=== PATIENT | female | born 1935 | race Caucasian/White ===

== ENCOUNTER 2023-01-18 07:13 | Observation (INO) | payer MEDICARE, OTHER, SELFPAY ==
[2023-01-18] VITALS (10 sets, daily range): BP systolic 140–151; BP diastolic 57–74; PULSE 77–84; RESP 17–18; TEMP 36.2–37; O2SAT 95–98; BMI 22.2
--- NOTE | ~2023-01-18 | XR_ITS ---
EXAMINATION: XR shoulder RT min 2V INDICATION: Right shoulder pain, initial encounter TECHNIQUE: Four views of the right shoulder are submitted. COMPARISON: None FINDINGS: There is an acute, traumatic, closed, comminuted fracture of the proximal humerus. The grea ter tuberosity exists as a separate fracture fragment. No additional fracture is identified. There is soft tissue swelling of the shoulder. IMPRESSION: 1. Comminuted fracture of the humeral head with the greater tuberosity as a separate fracture fragmen t. Reviewed, dictated and finalized at location A. IMPRESSION: 1. Comminuted fracture of the humeral head with the greater tuberosity as a sep arate fracture fragment.
--- NOTE | ~2023-01-18 | CT_ITS ---
EXAMINATION: CT brain wo con INDICATION: Headache COMPARISON: None TECHNIQUE: Standard unenhanced head CT. The dose-length product (DLP) was 605.33 mGy-cm. The mA was a djusted according to patient size. Iterative reconstruction technique was employed. FINDINGS: There is no acute intraparenchymal hemorrhage. No evidence of mass lesion. No evidence of a cute infarction. There is mild periventricular and subcortical hypodensity probably related to small vessel ischemic disease. There is mild prominence of the sulci and ventricles related to cerebral atr ophy. Intracranial calcified cerebral atherosclerosis is noted. There are no extra-axial collections. There is no mass effect or midline shift. Changes in the globes are likely from ocular lens surgery. The visualized sinuses and mastoid air cells are well aerated. IMPRESSION: 1. No acute intracranial abnormality. 2. Age related findings. Reviewed, dictated and finalized at location A.
--- NOTE | ~2023-01-18 | CT_ITS ---
EXAMINATION: CT shoulder RT wo con DATE: 01/18/2023 13:51 INDICATION: Complex right shoulder fracture TECHNIQUE: Computed tomography (CT) of the right shoulder was performed without intravenous contrast. The dose-length product (DLP) was 409.61 mGy-cm. Automated exposure control and iterative reconstruc tion technique were employed. COMPARISON: None FINDINGS: Again seen is a comminuted fracture of the right humeral head. The articular surface of the humeral head is mildly inferiorly displaced with respect to the glenoid. The greater tuberosity exis ts as a separate fracture fragment. The humeral shaft is proximally migrated and primarily located an terior to the remaining fracture fragments. There is a joint effusion. No additional fracture is iden tified. There are subpleural reticular and groundglass opacities of the lungs in a pattern consistent with nonspecific interstitial pneumonia. IMPRESSION: 1. Complex comminuted fractures of the right humeral head as above. Reviewed, dictated and finalized at location A.
--- NOTE | ~2023-01-18 | CT_ITS ---
EXAMINATION: CT brain wo con DATE: 01/19/2023 17:29 INDICATION: Fall today. TECHNIQUE: Computed tomography (CT) of the head was performed without intravenous contrast. The mA wa s adjusted according to patient size. Iterative reconstruction technique was employed. Exam dose: 60 5.33 mGy-cm total exam DLP. COMPARISON: 01/18/2023 CDT FINDINGS: There is central and cortical cerebral atrophy. There is moderate cerebellar atrophy. There is nonspecific diminished attenuation cerebral white matter, likely due to chronic small vessel isch emic changes of the cerebral white matter. Bilateral carotid siphon internal carotid artery calcifications. No intracranial mass lesion or hemorrhage, midline shift or mass effect. No subdural or epidural miguel carmela. No fracture or bone destruction of the cranial vault. The mastoid air cells and included paranasal si nuses are normally developed and aerated. IMPRESSION: Cerebral and cerebellar atrophy Cerebral atherosclerosis and chronic small vessel ischemic changes of the cerebral white matter No acute intracranial abnormality Reviewed, dictated and finalized at Location A. Reviewed, dictated and finalized at location A. IMPRESSION: Cerebral and cerebellar atrophy Cerebral atherosclerosis and chronic small vessel ischemic changes of the cereb ral white matter No acute intracranial abnormality
--- NOTE | ~2023-01-18 | XR_ITS ---
XR hip BI 2V w AP pelvis DATE: 01/19/2023 16:39 INDICATION: Recent fall. Right hip pain. TECHNIQUE: AP pelvis. AP and lateral views of each hip. COMPARISON: None FINDINGS: Multilevel degenerative disc disease of the lumbar spine. The pubic symphysis and sacroiliac joints are intact. No pelvic fracture or bone destruction. There is mild bilateral hip osteoarthritis. No fracture, dislocation, avascular necrosis or bone dest ruction of either hip is detected. IMPRESSION: Mild bilateral hip osteoid arthritis Multilevel degenerative disc disease of the lumbar spine Reviewed, dictated and finalized at location A.
--- NOTE | ~2023-01-18 | XR_ITS ---
EXAMINATION: XR humerus RT INDICATION: Arm pain after fall TECHNIQUE: Two views of the right humerus are obtained on four radiographs. COMPARISON: None available FINDINGS: There is an acute, traumatic, closed, comminuted fracture of the proximal humerus. The grea ter tuberosity exists as a separate fracture fragment. No additional fracture is identified. Bone ali gnment at the elbow is normal. There is soft tissue swelling of the shoulder. IMPRESSION: 1. Comminuted fracture of the humeral head with the greater tuberosity as a separate fracture fragmen t. Reviewed, dictated and finalized at location A. IMPRESSION: 1. Comminuted fracture of the humeral head with the greater tuberosity as a sep arate fracture fragment.
--- NOTE | 2023-01-18 07:16 | ED.FALL ---
HPI - Fall General Chief Complaint: Fall Stated Complaint: fall, shoulder pain Time Seen by Provider: 01/18/23 07:15 Source: patient and EMS Mode of arrival: EMS Limitations: no limitations History of Present Illness HPI Narrative: Patient tripped and fell in her bedroom landed on the right shoulder, carpeted floor, no head injury or other injuries, not on any blood thinner. complaint: fall Related Data Allergies Allergy/AdvReac Type Severity Reaction Status Date / Time No Known Allergies Allergy Verified 01/18/23 07:22 Review of Systems Review of Systems: All systems reviewed & are unremarkable except as noted in HPI and below PMFSH Family History Family History Grandparent Family history of malignant neoplasm of breast Social History Social History Smoking status: Never smoker Smoking end date: 10/27/69 Alcohol intake: never Exam Narrative: General appearance: Well-developed, well-nourished Skin: Normal color Head: Normocephalic, nontraumatic Eyes: Clear conjunctiva ENT: Oropharynx normal, ears normal, nose normal Neck: Supple, nontender Chest and respiratory: Airway patent, no respiratory distress, no accessory muscle use Heart: Regular rate/rhythm Abdomen: Soft, nontender, no organomegaly, quiet bowel sounds Vascular: Normal peripheral pulses, normal capillary refill. Musculoskeletal: Diffuse tenderness right arm, proximal, swollen, bruised, no obvious deformity, severe limited range of motion Neurologic: Alert and oriented ?3, GLASS POLISHER is normal as tested, no gross motor deficit Course Reevaluation(s) Reevaluation #1: Patient feeling okay, I agreed with the admission Date: 01/18/23 Time: 09:08 Consultations Consultation #1: Dr. Nelson Shoulder immobilizer, outpatient follow next week Date: 01/18/23 Time: 08:12 Vital Signs Vital signs: Vital Signs Temperature 37.0 C 01/18/23 07:11 Pulse Rate 84 01/18/23 07:11 Respiratory Rate 18 01/18/23 07:11 Blood Pressure 151/74 H 01/18/23 07:11 Pulse Oximetry 97 01/18/23 07:11 Oxygen Delivery Room Air 01/18/23 07:11 Temperature 37.0 C 01/18/23 07:11 Pulse Rate 84 01/18/23 07:11 Respiratory Rate 18 01/18/23 07:11 Blood Pressure 151/74 H 01/18/23 07:11 Pulse Oximetry 97 01/18/23 07:11 Oxygen Delivery Room Air 01/18/23 07:11 MDM - Fall MDM Narrative Medical decision making narrative: Patient came from assisted living with a fall on the right shoulder, denies other injuries. X-ray right shoulder ordered, and showed comminuted fracture of the humeral head with the greater tuberosity as a separate fracture fragment. Patient received [place] 5/[address] prior to admission Dr. Nelson consulted, requested shoulder immobilizer and follow-up as outpatient. Because patient came from assisted living, have no assist at home will be admitted for social service consult and possible skilled nursing placement in the meantime. Differential Diagnosis Differential diagnosis: Likely compression fracture (Fracture right arm, dislocation right shoulder) Critical Care Time Critical Care Time Critical Care Time: Yes Total Critical Care Time: 10 Discharge Plan Discharge Clinical Impression: Fracture of right shoulder Patient Disposition: Still a Patient Condition: Stable Instructions: Antibiotic Form, Arm Fracture in Adults (DC) Additional Instructions: Admit to hospitalist Follow-up/Referrals: Lamberto Valdivia MD [Primary Care Provider] -
[2023-01-18] MEDS: HYDROcodone/acetaminophen (*CRX) 5-325 MG TABLET 1 TAB PO (07:49)
--- NOTE | 2023-01-18 09:53 | PC.NURSE ---
This patient, Fara Nicole, was admitted to [facility] Surg Room 325-02. Patient/family oriented to hospital policies and general routines including ID bracelet, bed and alarms, visiting hours, pain management, procedures, bathroom and other care routines, personal items, smoking policy, room service/diet, and visiting hours. Information on how to activate the Rapid Response Team has been discussed. Patient/Family are encouraged to report perceived risks to care and to ask questions if they do not understand what they are told or what they should do.
--- NOTE | 2023-01-18 12:26 | PM.CNOR ---
Assessment and Plan Assessment and plan (1) Fracture of right shoulder: Code(s): S42.91XA - Fracture of right shoulder girdle, part unspecified, initial encounter for closed fracture Status: Acute Assessment and Plan: Displaced comminuted fracture of the right proximal humerus. Significant progressive dementia. Low functional demand, and frequent falls. Surgery would carry significant risk for her. Non operative treatment would likely lead to satisfactory function. I recommend a CT scan to take a closer look at the fracture. Will plan to treat with the immobilizer. Discharged to assisted living when that becomes available or make other arrangements sooner. History of Present Illness HPI Consult date: 01/18/23 Chief complaint: Fracture right shoulder Narrative: 87-year-old pleasantly demented female complains of right shoulder pain. She does not have a recollection of events. She is not oriented to place or time. History obtained from the nurse. Apparently was found down today at the assisted living. Due to recent decline she is planning to transfer to higher level of care January 25. She has a history of frequent falls and has been using the walker more often. Review of Systems Review of Systems: ROS unobtainable: Yes unobtainable due to mental status [facility] Family History Family History Grandparent Family history of malignant neoplasm of breast Social History Social History Smoking status: Never smoker Smoking end date: 10/27/69 Alcohol intake: never Substance use: never Substance use type: does not use Lack of Transportation: No Lack of Food: Never True Current Housing: I Have Housing Concerned About Future Housing: No Difficulty Paying Gas/Electric Bills: No Difficulty Paying for Meds: No Currently Unemployed: No Education: High School Diploma/GED Difficulty w/ Childcare or Family Care: No Spiritual care concerns: No Meds Home Medications and Allergies Home Medications Medication Instructions Recorded Confirmed Type aspirin 81 mg tablet,delayed 81 mg PO DAILY 01/18/23 01/18/23 History release atorvastatin 10 mg tablet 10 mg PO DAILY 01/18/23 01/18/23 History cholecalciferol (vitamin D3) 50 50 mcg PO DAILY 01/18/23 01/18/23 History mcg (2,000 unit) capsule (Vitamin D3) donepezil 5 mg tablet 5 mg PO HS 01/18/23 01/18/23 History hydrochlorothiazide 100 mg tablet 200 mg PO DAILY 01/18/23 01/18/23 History lisinopril 5 mg tablet 5 mg PO DAILY 01/18/23 01/18/23 History omega-3 fatty acids-vitamin E 1,000 cap PO DAILY 01/18/23 01/18/23 History 1,000 mg capsule sertraline 100 mg tablet 100 mg PO DAILY 01/18/23 01/18/23 History Allergies Allergy/AdvReac Type Severity Reaction Status Date / Time No Known Allergies Allergy Verified 01/18/23 07:22 Vital Signs Vital Signs - 24 hr 01/18/23 07:11 01/18/23 07:47 01/18/23 08:00 Temperature 37.0 C Pulse Rate 84 Respiratory Rate 18 Blood Pressure 151/74 H Pulse Oximetry 97 98 97 Oxygen Delivery Room Air 01/18/23 08:15 01/18/23 08:32 01/18/23 08:42 Temperature Pulse Rate Respiratory Rate Blood Pressure 141/57 H Pulse Oximetry 98 97 Oxygen Delivery 01/18/23 08:45 01/18/23 09:00 Temperature Pulse Rate Respiratory Rate Blood Pressure Pulse Oximetry 96 98 Oxygen Delivery Exam Narrative: Pleasantly demented. Thin. Appears quite healthy and alert. Sitting upright in bed eating her lunch. Right shoulder with significant ecchymosis anteriorly at the mid to proximal humerus. No clinical deformity. Immobilizer appropriately placed. light touch sensation intact at the axillary nerve. Kelly Machine Operator strength intact. Light touch sensation intact distally. No edema. Results Labs Labs: All other labs normal. [facility] Consult Billing Inp
--- NOTE | 2023-01-18 13:25 | PM.IMHP ---
H&P: HPI History of Present Illness Date/Time: 01/18/23 13:25 Chief Complaint: Fall Narrative: This is an 87-year-old female patient with a history of dementia. She tells me that she lives in assisted living. The patient fell and landed on her right shoulder. She tripped over something in her bedroom. She landed on a carpeted floor and denies any head injury or any other head injuries. Right shoulder x-ray was read as comminuted fracture of the humeral head with greater tuberosity as a separate fracture fragment. Humerus x-ray was read as comminuted fracture of the humeral head the greater tuberosity as a separate fracture fragment. The patient was placed in a swath and sling. She denies any discomfort. Ortho was consulted and have already seen the patient. Ortho recommended a CT for further evaluation of the fracture and mentioned that non operative treatment would likely lead to satisfactory function. She was given [place] in the emergency room. The patient is being admitted to observation status on the date of service of 01/18/2023 Review of Systems Review of Systems: All systems reviewed & are unremarkable except as noted in HPI and below Constitutional: Constitutional: Reports as per HPI and Reports no additional constitutional complaints Eyes: Eyes: Reports as per HPI and Reports no additional eye complaints ENT: Reports system reviewed and no additional complaints, except as documented and Reports Normal hearing present Cardiovascular: Cardiovascular: Reports no additional cardiovascular complaints Respiratory: Respiratory: Reports no additional respiratory complaints and Reports no additional respiratory complaints Gastrointestinal: Gastrointestinal: Reports as per HPI and Reports no additional gastrointestinal complaints Musculoskeletal: Musculoskeletal: Reports no additional musculoskeletal complaints Integumentary/Breasts: Skin/Breast: Reports system reviewed and no additional complaints, except as docu and Reports as per HPI Neurologic: Reports system reviewed and no additional complaints, except as documented, Reports as per HPI and Reports Normal hearing present Psychiatric: Psychiatric: Reports no additional psychiatric complaints and Reports as per HPI Endocrine: Endocrine: Reports no additional endocrine complaints Hematologic/Lymphatic: Hematologic/Lymphatic: Reports no additional hematologic/lymphatic complaints Allergic/Immunologic: Allergic/Immunologic: Reports no additional allergic/immunologic complaints [facility] Past Medical History Medical History Dementia Depression with anxiety Hyperlipidemia Hypertension Rheumatoid arthritis Surgical History Surgical History H/O foot surgery H/O tubal ligation H/O: hysterectomy Family History Family History Grandparent Family history of malignant neoplasm of breast Sibling Cerebrovascular accident Father Acute myocardial infarction Social History Social History Social History: The patient is and tells me she has 5 children. 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 Code status full code Smoking status: Former smoker Smoking end date: 10/27/69 Alcohol intake: never Substance use: never Substance use type: does not use Lack of Transportation: No Lack of Food: Never True Current Housing: I Have Housing Concerned About Future Housing: No Difficulty Paying Gas/Electric Bills: No Difficulty Paying for Meds: No Currently Unemployed: No Education: High School Diploma/GED Difficulty w/ Childcare or Family Care: No Spiritual care concerns: No
[2023-01-18 14:18] LABS: Alanine Aminotransferase 24 U/L (6-35); Alkaline Phosphatase 85 U/L (38-126); Anion Gap 8 mmol/L (8-16); Aspartate Amino Transferase 31 U/L (14-36); Bilirubin,Total 0.6 mg/dL (0.2-1.3); Blood Urea Nitrogen 16 mg/dL (7-17); Calcium 9.1 mg/dL (8.4-10.2); Carbon Dioxide 24 mmol/L (22-30); Chloride 104 mmol/L (98-107); Estimated Glomerular Filt Rate > 60; Glucose 127 mg/dL (65-110); Potassium 3.9 mmol/L (3.4-5.0); Sodium 136 mmol/L (137-145)
[2023-01-18 14:19] LABS: Basophils Absolute Auto 0.1 K/mm3 (0.0-0.1); Basophils Percent Auto 0.5 % (0.2-1.2); Hematocrit 37.2 % (37.0-47.0); Hemoglobin 12.3 g/dL (12.0-15.0); Immature Granulocyte Absolute 0.05 K/mm3 (0.00-0.031); Immature Granulocyte Percent A 0.4 % (0-0.5); Lymphocytes Absolute Auto 0.82 K/mm3 (0.9-3.2); Lymphocytes Percent Auto 6.7 % (18.3-44.2); Mean Corpuscular HGB Conc 33.1 g/dl (32-36); Mean Corpuscular Hemoglobin 29.4 pg (26-34); Mean Corpuscular Volume 88.8 fl (80-100); Mean Platelet Volume 9.8 fl (7.4-10.4); Monocytes Absolute Auto 1.2 K/mm3 (0.1-0.6); Monocytes Percent Auto 9.8 % (2.6-8.5); Neutrophils Absolute Auto 10.1 K/mm3 (1.3-6.7); Neutrophils Percent Auto 82.6 % (45.5-73.1); Platelet Count Result 365 k/mm3 (150-375); Red Blood Count 4.19 M/mm3 (4.2-5.4); Red Cell Distribution Width 13.2 % (11.5-14.5); White Blood Count 12.2 K/mm3 (4.5-10.0)
[2023-01-18] MEDS: ACETAMINOPHEN 325 MG TABLET 650 MG PO (16:38)
[2023-01-18] MEDS: DONEPEZIL HCL 5 MG TABLET PO (21:37)
[2023-01-19 04:07] VITALS: BP 142/67; PULSE 93; RESP 20; TEMP 36.6; O2SAT 95
--- NOTE | 2023-01-19 07:20 | PM.IMPN ---
Progress Note: A&P Assessment and Plan (1) Fracture of right shoulder: Code(s): S42.91XA - Fracture of right shoulder girdle, part unspecified, initial encounter for closed fracture Status: Acute Assessment and Plan: Ortho was consulted and patient high risk for surgery. Recommend conservative nonsurgical measures CT of the shoulder shows complex comminuted fractures of right humeral head Continue with analgesics PT OT evaluation and recommendations. Continue right arm immobilizer sling and weight bearing recommendations per ortho (2) Dementia: Code(s): F03.90 - Unspecified dementia, unspecified severity, without behavioral disturbance, psychotic disturbance, mood disturbance, and anxiety Status: Acute Assessment and Plan: Unsure of baseline. Patient is forgetful Continue with Aricept recycle coordinator following for possible rehab B12 222 and will supplement with PO B12 2000 mcg daily, repeat B12 level in [address] head negative for acute findings. (3) Hypertension: Qualifiers: Hypertension type: primary hypertension Qualified Code(s): I10 - Essential (primary) hypertension Code(s): I10 - Essential (primary) hypertension Status: Chronic Assessment and Plan: Continue with lisinopril as BP allows. 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 Will start 2000 IU daily for goal >30 Plan CODE STATUS: FULL CODE Disposition: pending PT/OT eval Time Spent With Patient Time with patient: 15 - 25 minutes Subjective Date/time seen: 01/19/23 07:20 Patient found sitting up in bed with right arm immobilizing sling in place. She denies c/o pain, paresthesia or paralysis. She does not recall what caused her fall, but denies chest pain, SOB, dizziness, LE weakness, dysuria, fever, chills, cough, sputum, or GI symptoms. Review of Systems Review of Systems: All systems reviewed & are unremarkable except as noted in HPI and below Exam Narrative: General: No acute distress.? Thin, frail older adult female sitting up in bed. Neuro/Psych: Awake, alert and oriented to person only. Clear and appropriate speech. Pleasant and cooperative. No focal sensory or motor deficits. No facial droop. No tremors or fasciculations. Skin: fair, warm, dry and intact without rashes. Large ecchymosis right anterior upper arm. <3 second cap refill. HEENT: Normocephalic. Sclera is non-icteric. Pupils equal and round. Oral mucosa pink and moist. Neck: No JVD. Heart: S1 and S2 regular rate and rhythm. No murmurs, gallops, or rubs auscultated. Chest: Respirations even and unlabored. Lung sounds are clear to auscultation without wheezes, rhonchi, or rales. Abdomen: Soft, round, non-tender to palpation.? Bowel sounds present in all 4 quadrants. No guarding or suprapubic tenderness. Extremities:? No edema, erythema or calf tenderness. RUE immobilizing sling sensation intact and able to wiggle fingers. Hand warm and dry. Radial and dorsalis pulses +2 bilaterally. Objective Data Vital Signs Vital Signs: Vital Signs - 24 hr 01/18/23 07:47 01/18/23 08:0
[2023-01-19 07:26] LABS: Basophils Absolute Auto 0.1 K/mm3 (0.0-0.1); Basophils Percent Auto 0.7 % (0.2-1.2); Eosinophils Percent Auto 0.3 % (0-4.4); Hematocrit 35.7 % (37.0-47.0); Hemoglobin 11.6 g/dL (12.0-15.0); Immature Granulocyte Absolute 0.03 K/mm3 (0.00-0.031); Immature Granulocyte Percent A 0.3 % (0-0.5); Lymphocytes Absolute Auto 0.69 K/mm3 (0.9-3.2); Lymphocytes Percent Auto 6.8 % (18.3-44.2); Mean Corpuscular HGB Conc 32.5 g/dl (32-36); Mean Corpuscular Hemoglobin 28.9 pg (26-34); Mean Platelet Volume 10.1 fl (7.4-10.4); Monocytes Absolute Auto 1.4 K/mm3 (0.1-0.6); Monocytes Percent Auto 13.4 % (2.6-8.5); Neutrophils Percent Auto 78.5 % (45.5-73.1); Platelet Count Result 338 k/mm3 (150-375); Red Blood Count 4.01 M/mm3 (4.2-5.4); Red Cell Distribution Width 13.2 % (11.5-14.5); White Blood Count 10.2 K/mm3 (4.5-10.0)
[2023-01-19 07:39] LABS: Lactic Acid Reflex 0.9 mmol/L (0.7-2.0)
[2023-01-19 07:47] LABS: Alanine Aminotransferase 19 U/L (6-35); Albumin Level 4.1 g/dL (3.5-5.1); Alkaline Phosphatase 84 U/L (38-126); Anion Gap 6 mmol/L (8-16); Aspartate Amino Transferase 26 U/L (14-36); Bilirubin,Total 0.7 mg/dL (0.2-1.3); Blood Urea Nitrogen 14 mg/dL (7-17); Calcium 9.2 mg/dL (8.4-10.2); Carbon Dioxide 26 mmol/L (22-30); Chloride 104 mmol/L (98-107); Estimated Glomerular Filt Rate > 60; Glucose 107 mg/dL (65-110); Magnesium 1.9 mg/dL (1.6-2.3); Potassium 3.8 mmol/L (3.4-5.0); Sodium 136 mmol/L (137-145)
[2023-01-19] MEDS: HYDROXYCHLOROQUINE SULFATE 200 MG TABLET PO (08:49)
[2023-01-19] MEDS: traMADol HCL (*CRX) 25 MG TABLET PO (08:52)
[2023-01-19 09:28] LABS: Vitamin D 25 Hydroxy 24.5 ng/mL
[2023-01-19] MEDS: OMEGA 3 POLYUNSAT FATTY ACIDS 1 GM CAP PO (12:12)
[2023-01-19] MEDS: lisinopriL 5 MG TABLET PO (12:12)
[2023-01-19] MEDS: ATORVASTATIN 10 MG TABLET PO (12:12)
[2023-01-19] MEDS: SERTRALINE HCL 50 MG TABLET 100 MG PO (12:13)
[2023-01-19] MEDS: ASPIRIN 81 MG ENTERIC TABLET PO (12:13)
[2023-01-19] MEDS: CHOLECALCIFEROL 1,000 UNITS TABLET 2000 UNITS PO (12:13)
--- NOTE | 2023-01-19 13:07 | PCOTNOTE ---
Will complete OT evaluation following WB status being entered. Hospitalist reports probably NWB on R UE, but needs to have ortho confirm this. Will follow.
[2023-01-19 14:00] VITALS: BP 128/59; PULSE 108; RESP 16; TEMP 37.6; O2SAT 93
[2023-01-19 14:22] LABS: Folic Acid 9.8 ng/mL (2.76->20)
--- NOTE | 2023-01-19 14:57 | PM.PNORT ---
Progress Note: A&P Assessment and Plan (1) Fracture of right shoulder: Code(s): S42.91XA - Fracture of right shoulder girdle, part unspecified, initial encounter for closed fracture Status: Acute (2) Dementia: Code(s): F03.90 - Unspecified dementia, unspecified severity, without behavioral disturbance, psychotic disturbance, mood disturbance, and anxiety Status: Acute Plan Displaced comminuted fracture of the right proximal humerus.? Significant progressive dementia.? Patient states she is in little pain today. Sleeping in a chair at the time of my visit. She is pleased about non-operative treatments. Low functional demand, and frequent falls. Fracture can be treated non-operatively to decrease surgical risk. CT scan reviewed. Will discuss CT results with Dr. Nelson tomorrow to confirm non-operative treatment. Immobilizer in place. Will need routine radiographic surveillance at either the facility she will be going to or in office. Subjective Subjective Date/Time Seen: 01/19/23 14:57 Interval history: 87-year-old pleasantly demented female complains of right shoulder pain. Sitting up in a chair. Sleeping at the time of my visit. Notes no pain at rest. She states she is pleased with non-operative treatment. Can move fingers, wrist, and elbow. No numbness or tingling. Good business strategy manager strength. Light touch sensation intact. No other complaints. Review of Systems Review of Systems: All systems reviewed & are unremarkable except as noted in HPI and below Exam Narrative: Pleasantly demented. 87 y.o. female. Thin. Appears quite healthy and alert. Sitting upright in a chair. Right shoulder with significant ecchymosis anteriorly at the mid to proximal humerus. No clinical deformity. Immobilizer appropriately placed. light touch sensation intact at the axillary nerve. Dump Grounds Checker strength intact. Light touch sensation intact distally. Moves fingers, wrist, and elbow. No edema. Objective Data Vital Signs Vital Signs: Vital Signs - 24 hr 01/18/23 20:24 01/18/23 20:00 01/19/23 04:07 Temperature 97.1 F L 98 F Pulse Rate 78 93 Respiratory Rate 18 20 Blood Pressure 140/59 L 142/67 H Pulse Oximetry 95 95 Oxygen Delivery Room Air 01/19/23 14:00 Temperature 99.6 F Pulse Rate 108 H Respiratory Rate 16 Blood Pressure 128/59 L Pulse Oximetry 93 Oxygen Delivery Intake/Output Intake/Output: Intake & Output 01/16/23 01/17/23 01/18/23 01/19/23 23:59 23:59 23:59 23:59 Intake Total 200 590 Output Total 0 Balance 200 590 Meds/Results Medications: Active Medications Generic Name Dose Route Start Last Admin Trade Name Freq PRN Reason Stop Dose Admin Acetaminophen 650 mg 01/18/23 08:22 01/18/23 16:38 Acetaminophen 325 Mg Tablet PO 650 mg Q4H PRN Administration Mild Pain (1-3) or Fever Aspirin 81 mg 01/19/23 09:00 01/19/23 12:13 Aspirin 81 Mg Enteric Tablet PO 81 mg DAILY ONIEL Administration Atorvastatin Calcium 10 mg 01/19/23 09:00 01/19/23 12:12 Atorvastatin 10 Mg Tablet PO 10 mg DAILY ONI[facility] Administration Cyanocobalamin 2,000 mcg 01/20/23 09:00 Cyanocobalamin 1,000 Mcg Tablet PO QAM ONIEL Donepezil HCl 5 mg 01/18/23 21:00 01/18/23 21:37 Donepezil Hcl 5 Mg Tablet PO 5 mg HS [facility] Administration Fish Oil 1 gm 01/19/23 09:00 01/19/23 12:12 [place] 3 Polyunsat Fatty Acids 1 Gm Cap PO 1 gm QAM ONIEL Administration Hydroxychloroquine Sulfate 200 mg 01/19/23 08:00 01/19/23 08:49 Hydroxychloroquine Sulfate 200 Mg Tablet PO 200 mg DAILY@0800 ONI[facility] Administration Lisinopril 5 mg 01/19/23 09:00 01/19/23 12:12 Lisinopril 5 Mg Tablet PO 5 mg DAILY ONI[facility] Administration Morphine Sulfate 2 mg 01/18/23 08:22 Morphine Sulfate (*Crx) 4 Mg/Ml Inj IV PUSH Q2H PRN Pain Rated 7-10 Ondansetron HCl 4 mg 01/18/23 08:22 Ondansetron Inj 4 Mg/2 Ml Vial IV PUSH Q4H PRN Nausea Sertrali
[2023-01-19 18:02] VITALS: BP 135/70; PULSE 107; RESP 20; TEMP 37.1; O2SAT 93
--- NOTE | 2023-01-19 19:31 | PC.NURSE ---
Pt was sitting in chair with alarm on after having worked with OT. Checked on pt twice and she stated she was fine. This RN was called to room from [facility] where I was admitting a pt with extreme [place]. Apparently, pt alarm had been going off and pt had slid out of chair and onto floor. Kelly, charger operator, handled fall and contacting family. All CT imaging came back clear.
[2023-01-19 20:00] VITALS: O2SAT 93
[2023-01-19] MEDS: DONEPEZIL HCL 5 MG TABLET PO (20:34)
[2023-01-19] MEDS: MORPHINE SULFATE (*CRX) 4 MG/ML INJ 2 MG IV PUSH (20:34)
[2023-01-19 22:00] VITALS: BP 139/64; PULSE 94; RESP 18; TEMP 36.8; O2SAT 93
[2023-01-20 02:45] VITALS: BP 135/58; PULSE 101; RESP 16; TEMP 36.1; O2SAT 94
[2023-01-20 06:26] LABS: Hematocrit 33.5 % (37.0-47.0); Hemoglobin 10.9 g/dL (12.0-15.0); Mean Corpuscular HGB Conc 32.5 g/dl (32-36); Mean Corpuscular Hemoglobin 29.4 pg (26-34); Mean Corpuscular Volume 90.3 fl (80-100); Mean Platelet Volume 9.9 fl (7.4-10.4); Platelet Count Result 294 k/mm3 (150-375); Red Blood Count 3.71 M/mm3 (4.2-5.4); Red Cell Distribution Width 13.6 % (11.5-14.5); White Blood Count 10.2 K/mm3 (4.5-10.0)
[2023-01-20 06:34] LABS: Anion Gap 6 mmol/L (8-16); Blood Urea Nitrogen 19 mg/dL (7-17); Carbon Dioxide 25 mmol/L (22-30); Chloride 104 mmol/L (98-107); Estimated Glomerular Filt Rate > 60; Glucose 117 mg/dL (65-110); Potassium 3.8 mmol/L (3.4-5.0); Sodium 135 mmol/L (137-145)
[2023-01-20] MEDS: SERTRALINE HCL 50 MG TABLET 100 MG PO (09:49)
[2023-01-20] MEDS: HYDROXYCHLOROQUINE SULFATE 200 MG TABLET PO (09:49)
[2023-01-20] MEDS: ENOXAPARIN 40 MG/0.4 ML SYRINGE SUB-Q (09:49)
[2023-01-20] MEDS: CYANOCOBALAMIN 1,000 MCG TABLET 2000 MCG PO (09:49)
[2023-01-20] MEDS: ASPIRIN 81 MG ENTERIC TABLET PO (09:49)
[2023-01-20] MEDS: CHOLECALCIFEROL 1,000 UNITS TABLET 2000 UNITS PO (09:50)
[2023-01-20] MEDS: ATORVASTATIN 10 MG TABLET PO (09:50)
[2023-01-20] MEDS: OMEGA 3 POLYUNSAT FATTY ACIDS 1 GM CAP PO (09:50)
[2023-01-20] MEDS: lisinopriL 5 MG TABLET PO (09:50)
[2023-01-20 15:22] VITALS: BP 118/60; PULSE 93; RESP 17; TEMP 36.9; O2SAT 94
--- NOTE | 2023-01-20 15:25 | PM.PNORT ---
Progress Note: A&P Assessment and Plan (1) Fracture of right shoulder: Code(s): S42.91XA - Fracture of right shoulder girdle, part unspecified, initial encounter for closed fracture Status: Acute (2) Dementia: Code(s): F03.90 - Unspecified dementia, unspecified severity, without behavioral disturbance, psychotic disturbance, mood disturbance, and anxiety Status: Acute Plan Displaced comminuted 4 part fracture of the right proximal humerus.? Reviewed CT scan. Spoke with Dr. Nelson. She would benefit from reverse total shoulder arthroplasty however she is high risk due to her dementia. Will conitnue non-operative treatment. Patient states she is in little to no pain today. Sleeping in a chair at the time of my visit. She is pleased about non-operative treatments. Low functional demand, and frequent falls. Immobilizer in place. Will need routine radiographic surveillance at either the facility she will be going to or in office. Plan for SNF/rehab at discharge. Ortho instructions: D/C to SNF/rehab Xray in 2 weeks and 6 weeks. May follow up in office or virtually with radiographic surveillance. PT: Wear immobilizer sling for 6 weeks. Patient may remove wrist from immobilizer sling while at rest. Elevate wrist for edema control. May start passive range of motion exercise only. Proceed as tolerated after 4 weeks. Pain medication: Tylenol. Avoid narcotics due to dementia. Subjective Subjective Date/Time Seen: 01/20/23 15:25 Interval history: 87-year-old pleasantly demented female complains of right shoulder pain. Sitting up in a chair. Sleeping at the time of my visit. Notes no pain at rest. Can move fingers, wrist, and elbow. No numbness or tingling. Good caustic operator strength. Light touch sensation intact. No other complaints. Review of Systems Review of Systems: All systems reviewed & are unremarkable except as noted in HPI and below Exam Narrative: Pleasantly demented. Alert to self. 87 y.o. female. Thin. Appears quite healthy and alert. Sitting upright in a chair. Right shoulder with significant ecchymosis anteriorly at the mid to proximal humerus. No clinical deformity. Immobilizer appropriately placed. light touch sensation intact at the axillary nerve. Agriculture Worker strength intact. Light touch sensation intact distally. Moves fingers, wrist, and elbow. No edema. Objective Data Vital Signs Vital Signs: Vital Signs - 24 hr 01/19/23 18:02 01/19/23 22:00 01/19/23 20:00 Temperature 98.8 F 98.3 F Pulse Rate 107 H 94 Respiratory Rate 20 18 Blood Pressure 135/70 139/64 Pulse Oximetry 93 93 93 Oxygen Delivery Room Air 01/20/23 02:45 01/20/23 09:29 01/20/23 09:50 Temperature 96.9 F L Pulse Rate 101 H Respiratory Rate 16 Blood Pressure 135/58 L Pulse Oximetry 94 Oxygen Delivery Room Air Room Air Intake/Output Intake/Output: Intake & Output 01/17/23 01/18/23 01/19/23 01/20/23 23:59 23:59 23:59 23:59 Intake Total 200 990 460 Output Total 0 Balance 200 990 460 Meds/Results Medications: Active Medications Generic Name Dose Route Start Last Admin Trade Name Freq PRN Reason Stop Dose Admin Acetaminophen 650 mg 01/18/23 08:22 01/18/23 16:38 Acetaminophen 325 Mg Tablet PO 650 mg Q4H PRN Administration Mild Pain (1-3) or Fever Aspirin 81 mg 01/19/23 09:00 01/20/23 09:49 Aspirin 81 Mg Enteric Tablet PO 81 mg DAILY ONI[facility] Administration Atorvastatin Calcium 10 mg 01/19/23 09:00 01/20/23 09:50 Atorvastatin 10 Mg Tablet PO 10 mg DAILY ONI[facility] Administration Cyanocobalamin 2,000 mcg 01/20/23 09:00 01/20/23 09:49 Cyanocobalamin 1,000 Mcg Tablet PO 2,000 mcg QAM ON[facility] Administration Donepezil HCl 5 mg 01/18/23 21:00 01/19/23 20:34 Donepezil Hcl 5 Mg Tablet PO 5 mg HS [facility] Administration Enoxaparin Sodium 40 mg 01/20/23 09:00 01/20/23 09:49 Enoxaparin 40 Mg/0.4 Ml Syringe SUB-Q 40 mg DAILY [facility]
--- NOTE | 2023-01-20 16:58 | PM.IMPN ---
Progress Note: A&P Assessment and Plan (1) Fracture of right shoulder: Code(s): S42.91XA - Fracture of right shoulder girdle, part unspecified, initial encounter for closed fracture Status: Acute Assessment and Plan: Ortho was consulted and patient high risk for surgery. Recommend conservative nonsurgical measures CT of the shoulder shows complex comminuted fractures of right humeral head Continue with analgesics PT OT evaluation and recommendations. Continue right arm immobilizer sling and weight bearing recommendations per ortho Awaiting rehab placement. (2) Dementia: Code(s): F03.90 - Unspecified dementia, unspecified severity, without behavioral disturbance, psychotic disturbance, mood disturbance, and anxiety Status: Acute Assessment and Plan: Unsure of baseline. Patient is forgetful Continue with Aricept aboriginal education worker coordinator following for possible rehab B12 222 and will supplement with PO B12 2000 mcg daily, repeat B12 level in [address] head negative for acute findings. Patient with fall during hospitalization on 01/19. Repeat imaging negative and no new complaints or concerning exam findings. Patient moved closer to nurses station. (3) Hypertension: Qualifiers: Hypertension type: primary hypertension Qualified Code(s): I10 - Essential (primary) hypertension Code(s): I10 - Essential (primary) hypertension Status: Chronic Assessment and Plan: Continue with lisinopril as BP allows. 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 started 2000 IU daily for goal >30 Plan CODE STATUS: FULL CODE Disposition: pending PT/OT eval Time Spent With Patient Time with patient: 15 - 25 minutes Subjective Date/time seen: 01/20/23 16:58 Interval history: No new complaints or overnight events. Patient is sitting up in the chair. Nursing reports the patient was found on the ground last night after attempting to get back to bed by herself. she was sitting up on the floor and reports hitting only her bottom. She denied head injury or musculoskeletal complaints. CT head and hip/pelvis without acute pathology. Patient denies RUSHING, SOB, dizziness, chest pain, abd pain, N/V/D, dysuria, neck pain, back pain, hip pain, or paresthesia. Review of Systems Review of Systems: All systems reviewed & are unremarkable except as noted in HPI and below Exam Narrative: General: No acute distress.? Thin, frail older adult female sitting up in the chair. Neuro/Psych: Awake, alert and oriented to person only. Clear and appropriate speech. Pleasant and cooperative. No focal sensory or motor deficits. No facial droop. No tremors or fasciculations. Skin: fair, warm, dry and intact without rashes. Large ecchymosis right anterior upper arm. <3 second cap refill. HEENT: Normocephalic. Sclera is non-icteric. Pupils equal and round. Oral mucosa pink and moist. Neck: No JVD. Heart: S1 and S2 regular rate and rhythm. No murmurs, gallops, or rubs auscultated. Chest: Respirations even and unlabored. Lung sounds are clear to auscultation without wheezes, rhonch
[2023-01-20] MEDS: DONEPEZIL HCL 5 MG TABLET PO (20:15)
[2023-01-20] MEDS: traMADol HCL (*CRX) 25 MG TABLET PO (20:26)
[2023-01-20 22:00] VITALS: BP 117/51; PULSE 94; RESP 20; TEMP 36.1; O2SAT 97
[2023-01-21 05:16] VITALS: BP 118/53; PULSE 77; RESP 14; TEMP 36.4; O2SAT 95
[2023-01-21] MEDS: CHOLECALCIFEROL 1,000 UNITS TABLET 2000 UNITS PO (08:54)
[2023-01-21] MEDS: OMEGA 3 POLYUNSAT FATTY ACIDS 1 GM CAP PO (08:54)
[2023-01-21] MEDS: ASPIRIN 81 MG ENTERIC TABLET PO (08:55)
[2023-01-21] MEDS: ATORVASTATIN 10 MG TABLET PO (08:55)
[2023-01-21] MEDS: CYANOCOBALAMIN 1,000 MCG TABLET 2000 MCG PO (08:55)
[2023-01-21] MEDS: lisinopriL 5 MG TABLET PO (08:55)
[2023-01-21] MEDS: SERTRALINE HCL 50 MG TABLET 100 MG PO (08:55)
[2023-01-21] MEDS: HYDROXYCHLOROQUINE SULFATE 200 MG TABLET PO (08:55)
[2023-01-21] MEDS: ENOXAPARIN 40 MG/0.4 ML SYRINGE SUB-Q (09:31)
[2023-01-21] MEDS: ACETAMINOPHEN 325 MG TABLET 650 MG PO (09:33)
[2023-01-21 14:00] VITALS: BP 106/53; PULSE 81; RESP 18; TEMP 37; O2SAT 99
--- NOTE | 2023-01-21 16:19 | PM.PNORT ---
Progress Note: A&P Assessment and Plan (1) Fracture of right shoulder: Code(s): S42.91XA - Fracture of right shoulder girdle, part unspecified, initial encounter for closed fracture Status: Acute (2) Dementia: Code(s): F03.90 - Unspecified dementia, unspecified severity, without behavioral disturbance, psychotic disturbance, mood disturbance, and anxiety Status: Acute Plan CT scan reviewed. Comminuted 4 part proximal humerus fracture. Frequent falls with another fall here in the hospital. Progressive dementia. Difficult situation. Poor surgical candidate. ORIF would carry high risk of failure. Reverse total shoulder arthroplasty with high complication rate. She is fairly comfortable. Will continue with non operative treatment. Subjective Subjective Date/Time Seen: 01/21/23 16:19 Objective Data Vital Signs Vital Signs: Vital Signs - 24 hr 01/20/23 20:00 01/20/23 22:00 01/21/23 05:16 Temperature 36.1 C L 36.4 C Pulse Rate 94 77 Respiratory Rate 20 14 Blood Pressure 117/51 L 118/53 L Pulse Oximetry 97 95 Oxygen Delivery Room Air 01/21/23 08:50 01/21/23 13:48 01/21/23 14:00 Temperature 37.0 C Pulse Rate 81 Respiratory Rate 18 Blood Pressure 106/53 L Pulse Oximetry 99 Oxygen Delivery Room Air Room Air Intake/Output Intake/Output: Intake & Output 01/18/23 01/19/23 01/20/23 01/21/23 23:59 23:59 23:59 23:59 Intake Total 200 990 700 580 Output Total 0 Balance 200 990 700 580 Meds/Results Medications: Active Medications Generic Name Dose Route Start Last Admin Trade Name Freq PRN Reason Stop Dose Admin Acetaminophen 650 mg 01/18/23 08:22 01/21/23 09:33 Acetaminophen 325 Mg Tablet PO 650 mg Q4H PRN Administration Mild Pain (1-3) or Fever Aspirin 81 mg 01/19/23 09:00 01/21/23 08:55 Aspirin 81 Mg Enteric Tablet PO 81 mg DAILY ONI[facility] Administration Atorvastatin Calcium 10 mg 01/19/23 09:00 01/21/23 08:55 Atorvastatin 10 Mg Tablet PO 10 mg DAILY ONI[facility] Administration Cyanocobalamin 2,000 mcg 01/20/23 09:00 01/21/23 08:55 Cyanocobalamin 1,000 Mcg Tablet PO 2,000 mcg QAM ONI[facility] Administration Donepezil HCl 5 mg 01/18/23 21:00 01/20/23 20:15 Donepezil Hcl 5 Mg Tablet PO 5 mg HS ON[facility] Administration Enoxaparin Sodium 40 mg 01/20/23 09:00 01/21/23 09:31 Enoxaparin 40 Mg/0.4 Ml Syringe SUB-Q 40 mg DAILY ONI[facility] Administration Fish Oil 1 gm 01/19/23 09:00 01/21/23 08:54 [place] 3 Polyunsat Fatty Acids 1 Gm Cap PO 1 gm QAM ONIEL Administration Hydroxychloroquine Sulfate 200 mg 01/19/23 08:00 01/21/23 08:55 Hydroxychloroquine Sulfate 200 Mg Tablet PO 200 mg DAILY@0800 [facility] Administration Lisinopril 5 mg 01/19/23 09:00 01/21/23 08:55 Lisinopril 5 Mg Tablet PO 5 mg DAILY ONI[facility] Administration Morphine Sulfate 2 mg 01/18/23 08:22 01/19/23 20:34 Morphine Sulfate (*Crx) 4 Mg/Ml Inj IV PUSH 2 mg Q2H PRN Administration Pain Rated 7-10 Ondansetron HCl 4 mg 01/18/23 08:22 Ondansetron Inj 4 Mg/2 Ml Vial IV PUSH Q4H PRN Nausea Sertraline HCl 100 mg 01/19/23 09:00 01/21/23 08:55 Sertraline Hcl 50 Mg Tablet PO 100 mg DAILY [facility] Administration Tramadol HCl 25 mg 01/18/23 14:17 01/20/23 20:26 Tramadol Hcl (*Crx) 25 Mg Tablet PO 25 mg Q4H PRN Administration Pain Rated 4-6 Vitamin D 2,000 units 01/19/23 09:00 01/21/23 08:54 Cholecalciferol 1,000 Units Tablet PO 2,000 units DAILY ONIEL Administration Radiology Results: ITS Impressions Humerus X-Ray 01/18/23 07:52 IMPRESSION: 1. Comminuted fracture of the humeral head with the greater tuberosity as a separate fracture fragment. Shoulder X-Ray 01/18/23 07:54 IMPRESSION: 1. Comminuted fracture of the humeral head with the greater tuberosity as a separate fracture fragment. Shoulder CT 01/18/23 14:04 IMPRESSION: 1. Complex comminuted fractures
--- NOTE | 2023-01-21 17:26 | PM.IMPN ---
Progress Note: A&P Assessment and Plan (1) Fracture of right shoulder: Code(s): S42.91XA - Fracture of right shoulder girdle, part unspecified, initial encounter for closed fracture Status: Acute Assessment and Plan: Ortho was consulted and patient high risk for surgery. Recommend conservative nonsurgical measures CT of the shoulder shows complex comminuted fractures of right humeral head Continue with analgesics PT OT evaluation and recommendations. Continue right arm immobilizer sling and weight bearing recommendations per ortho Awaiting rehab placement. (2) Dementia: Code(s): F03.90 - Unspecified dementia, unspecified severity, without behavioral disturbance, psychotic disturbance, mood disturbance, and anxiety Status: Acute Assessment and Plan: Unsure of baseline. Patient is forgetful Continue with Aricept sports coordinator following for possible rehab B12 222 and will supplement with PO B12 2000 mcg daily, repeat B12 level in [address] head negative for acute findings. Patient with fall during hospitalization on 01/19. Repeat imaging negative and no new complaints or concerning exam findings. Patient moved closer to nurses station. (3) Hypertension: Qualifiers: Hypertension type: primary hypertension Qualified Code(s): I10 - Essential (primary) hypertension Code(s): I10 - Essential (primary) hypertension Status: Chronic Assessment and Plan: Continue with lisinopril as BP allows. 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 started 2000 IU daily for goal >30 Plan CODE STATUS: FULL CODE Disposition: awaiting SNF placement Time Spent With Patient Time with patient: 15 - 25 minutes Subjective Date/time seen: 01/21/23 17:26 Interval history: No new complaints or overnight events. Awaiting insurance authorization for SNF. Exam Narrative: General: No acute distress.? Neuro/Psych: Awake, alert and oriented to person only. Clear and appropriate speech. Pleasant and cooperative. No focal sensory or motor deficits. No facial droop. No tremors or fasciculations. Skin: fair, warm, dry and intact without rashes. Large ecchymosis right anterior upper arm. <3 second cap refill. HEENT: Normocephalic. Sclera is non-icteric. Pupils equal and round. Oral mucosa pink and moist. Neck: No JVD. Heart: S1 and S2 regular rate and rhythm. Chest: Respirations even and unlabored. Lung sounds are clear to auscultation without wheezes, rhonchi, or rales. Abdomen: Soft, round, non-tender to palpation.? Bowel sounds present in all 4 quadrants. Extremities:? No edema, erythema or calf tenderness. RUE immobilizing sling sensation intact and able to wiggle fingers. Radial and dorsalis pulses palpable bilaterally. No deformity to LUE or BLE. Nontender to palpation BLE. Objective Data Vital Signs Vital Signs: Vital Signs - 24 hr 01/20/23 20:00 01/20/23 22:00 01/21/23 05:16 Temperature 97 F L 97.6 F Pulse Rate 94 77 Respiratory Rate 20 14 Blood Pressure 117/51 L 118/53 L Pulse Oximetry 97 95 Oxygen Delivery Room Air
[2023-01-21 19:18] LABS: EDCOVIDSCREEN Positive (Negative)
[2023-01-21] MEDS: traMADol HCL (*CRX) 25 MG TABLET PO (20:56)
[2023-01-21] MEDS: SENNA/DOCUSATE SODIUM TABLET 1 TAB PO (20:56)
[2023-01-21] MEDS: DONEPEZIL HCL 5 MG TABLET PO (20:57)
[2023-01-21 22:00] VITALS: BP 120/45; PULSE 80; RESP 14; TEMP 36.3; O2SAT 94
[2023-01-22 06:00] VITALS: BP 119/56; PULSE 83; RESP 14; TEMP 35.7; O2SAT 98
[2023-01-22 06:21] LABS: Hematocrit 32.4 % (37.0-47.0); Hemoglobin 10.5 g/dL (12.0-15.0); Mean Corpuscular HGB Conc 32.4 g/dl (32-36); Mean Corpuscular Hemoglobin 29.1 pg (26-34); Mean Corpuscular Volume 89.8 fl (80-100); Platelet Count Result 311 k/mm3 (150-375); Red Blood Count 3.61 M/mm3 (4.2-5.4); Red Cell Distribution Width 13.2 % (11.5-14.5); White Blood Count 7.7 K/mm3 (4.5-10.0)
[2023-01-22 06:32] LABS: Anion Gap 5 mmol/L (8-16); Blood Urea Nitrogen 20 mg/dL (7-17); Calcium 8.9 mg/dL (8.4-10.2); Carbon Dioxide 29 mmol/L (22-30); Chloride 103 mmol/L (98-107); Estimated Glomerular Filt Rate > 60; Glucose 92 mg/dL (65-110); Potassium 3.6 mmol/L (3.4-5.0); Sodium 137 mmol/L (137-145)
[2023-01-22] MEDS: SERTRALINE HCL 50 MG TABLET 100 MG PO (08:42)
[2023-01-22] MEDS: ENOXAPARIN 40 MG/0.4 ML SYRINGE SUB-Q (08:42)
[2023-01-22] MEDS: CHOLECALCIFEROL 1,000 UNITS TABLET 2000 UNITS PO (08:43)
[2023-01-22] MEDS: HYDROXYCHLOROQUINE SULFATE 200 MG TABLET PO (08:43)
[2023-01-22] MEDS: ATORVASTATIN 10 MG TABLET PO (08:43)
[2023-01-22] MEDS: lisinopriL 5 MG TABLET PO (08:43)
[2023-01-22] MEDS: CYANOCOBALAMIN 1,000 MCG TABLET 2000 MCG PO (08:43)
[2023-01-22] MEDS: SENNA/DOCUSATE SODIUM TABLET 1 TAB PO ×2 (08:43→17:07)
[2023-01-22] MEDS: ASPIRIN 81 MG ENTERIC TABLET PO (08:43)
[2023-01-22] MEDS: OMEGA 3 POLYUNSAT FATTY ACIDS 1 GM CAP PO (08:43)
--- NOTE | 2023-01-22 08:59 | PM.PNORT ---
Progress Note: A&P Assessment and Plan (1) Fracture of right shoulder: Code(s): S42.91XA - Fracture of right shoulder girdle, part unspecified, initial encounter for closed fracture Status: Acute Assessment and Plan: Pleasantly demented. Comfortable. Sitting in the chair eating breakfast. Examination Pleasant. No distress. moderate ecchymosis. Mild tenderness. No clinical deformity. Good horses or mules teamster strength. Light touch sensation intact. No edema distally. Impression Comminuted displaced 4 part proximal humerus fracture right shoulder. Malunion expected. Not a good surgical candidate. She is quite comfortable with the immobilizer. Moderate ecchymosis as expected. Recommend deferring any significant shoulder weight-bearing, or exercise for 4-6 weeks from the date of injury. Repeat x-rays in 4-6 weeks. Awaiting detention placement. Subjective Subjective Date/Time Seen: 01/22/23 08:59 Objective Data Vital Signs Vital Signs: Vital Signs - 24 hr 01/21/23 13:48 01/21/23 14:00 01/21/23 22:00 Temperature 37.0 C 36.3 C L Pulse Rate 81 80 Respiratory Rate 18 14 Blood Pressure 106/53 L 120/45 L Pulse Oximetry 99 94 Oxygen Delivery Room Air 01/22/23 06:00 Temperature 35.7 C L Pulse Rate 83 Respiratory Rate 14 Blood Pressure 119/56 L Pulse Oximetry 98 Oxygen Delivery Intake/Output Intake/Output: Intake & Output 01/19/23 01/20/23 01/21/23 01/22/23 23:59 23:59 23:59 23:59 Intake Total 990 700 700 75 Balance 990 700 700 75 Meds/Results Medications: Active Medications Generic Name Dose Route Start Last Admin Trade Name Freq PRN Reason Stop Dose Admin Acetaminophen 650 mg 01/18/23 08:22 01/21/23 09:33 Acetaminophen 325 Mg Tablet PO 650 mg Q4H PRN Administration Mild Pain (1-3) or Fever Aspirin 81 mg 01/19/23 09:00 01/22/23 08:43 Aspirin 81 Mg Enteric Tablet PO 81 mg DAILY ONI[facility] Administration Atorvastatin Calcium 10 mg 01/19/23 09:00 01/22/23 08:43 Atorvastatin 10 Mg Tablet PO 10 mg DAILY ON[facility] Administration Cyanocobalamin 2,000 mcg 01/20/23 09:00 01/22/23 08:43 Cyanocobalamin 1,000 Mcg Tablet PO 2,000 mcg QAM [facility] Administration Donepezil HCl 5 mg 01/18/23 21:00 01/21/23 20:57 Donepezil Hcl 5 Mg Tablet PO 5 mg HS [facility] Administration Enoxaparin Sodium 40 mg 01/20/23 09:00 01/22/23 08:42 Enoxaparin 40 Mg/0.4 Ml Syringe SUB-Q 40 mg DAILY [facility] Administration Fish Oil 1 gm 01/19/23 09:00 01/22/23 08:43 [place] 3 Polyunsat Fatty Acids 1 Gm Cap PO 1 gm QAM [facility] Administration Hydroxychloroquine Sulfate 200 mg 01/19/23 08:00 01/22/23 08:43 Hydroxychloroquine Sulfate 200 Mg Tablet PO 200 mg DAILY@0800 [facility] Administration Lisinopril 5 mg 01/19/23 09:00 01/22/23 08:43 Lisinopril 5 Mg Tablet PO 5 mg DAILY [facility] Administration Morphine Sulfate 2 mg 01/18/23 08:22 01/19/23 20:34 Morphine Sulfate (*Crx) 4 Mg/Ml Inj IV PUSH 2 mg Q2H PRN Administration Pain Rated 7-10 Ondansetron HCl 4 mg 01/18/23 08:22 Ondansetron Inj 4 Mg/2 Ml Vial IV PUSH Q4H PRN Nausea Senna/Docusate Sodium 1 tab 01/21/23 17:30 01/22/23 08:43 Senna/Docusate Sodium Tablet PO 1 tab BID [facility] Administration Sertraline HCl 100 mg 01/19/23 09:00 01/22/23 08:42 Sertraline Hcl 50 Mg Tablet PO 100 mg DAILY [facility] Administration Tramadol HCl 25 mg 01/18/23 14:17 01/21/23 20:56 Tramadol Hcl (*Crx) 25 Mg Tablet PO 25 mg Q4H PRN Administration Pain Rated 4-6 Vitamin D 2,000 units 01/19/23 09:00 01/22/23 08:43 Cholecalciferol 1,000 Units Tablet PO 2,000 units DAILY [facility] Administration Radiology Results: ITS Impressions Humerus X-Ray 01/18/23 07:52 IMPRESSION: 1. Comminuted fracture of the humeral head with the greater tuberosity as a separate fracture fragment. Shoulder X-Ray 01/18/23 07:54 IMPRESSION: 1. Comminuted
[2023-01-22 13:03] LABS: SARS-CoV-2 RNA PCR Negative
[2023-01-22 14:00] VITALS: BP 123/50; PULSE 84; RESP 16; TEMP 36.8; O2SAT 97
--- NOTE | 2023-01-22 16:27 | PM.IMPN ---
Progress Note: A&P Assessment and Plan (1) Fracture of right shoulder: Code(s): S42.91XA - Fracture of right shoulder girdle, part unspecified, initial encounter for closed fracture Status: Acute Assessment and Plan: Ortho was consulted and patient high risk for surgery. Recommend conservative nonsurgical measures CT of the shoulder shows complex comminuted fractures of right humeral head Continue with analgesics PT OT evaluation and recommendations. right arm immobilizer sling and weight bearing recommendations per ortho Plan for patient to be discharged tomorrow. (2) Dementia: Code(s): F03.90 - Unspecified dementia, unspecified severity, without behavioral disturbance, psychotic disturbance, mood disturbance, and anxiety Status: Acute Assessment and Plan: Unsure of baseline. Patient is forgetful Continue with [facility] educational resource coordinator following for possible rehab B12 222 and will supplement with PO B12 2000 mcg daily, repeat B12 level in [address] head negative for acute findings. Patient with fall during hospitalization on 01/19. Repeat imaging negative and no new complaints or concerning exam findings. Patient moved closer to nurses station. (3) Hypertension: Qualifiers: Hypertension type: primary hypertension Qualified Code(s): I10 - Essential (primary) hypertension Code(s): I10 - Essential (primary) hypertension Status: Chronic Assessment and Plan: Continue with lisinopril as BP allows. 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 started 2000 IU daily for goal >30 Plan CODE STATUS: FULL CODE Disposition: awaiting SNF placement Subjective Date/time seen: 01/22/23 16:27 Interval history: No new complaints or overnight events. Awaiting insurance authorization for SNF. Patient required a a COVID rapid response test for SNF placement which came back positive. Repeat PCR came back negative. Placement will still not except patient and she is to be discharged back into living facility. Review of Systems Review of Systems: All systems reviewed & are unremarkable except as noted in HPI and below Exam Narrative: GENERAL: Comfortable, no acute distress HENMT: moist mucous membranes EYES: EOM intact b/l NECK: no lymphadenopathy RESPIRATORY: clear to auscultation CARDIO: RRR GI: soft, nontender, bowel sounds present SKIN: no rashes EXTREMITIES: no edema, redness or tenderness; right immobilizer sling Objective Data Vital Signs Vital Signs: Vital Signs - 24 hr 01/21/23 22:00 01/22/23 06:00 01/22/23 08:40 Temperature 97.4 F L 96.3 F L Pulse Rate 80 83 Respiratory Rate 14 14 Blood Pressure 120/45 L 119/56 L Pulse Oximetry 94 98 Oxygen Delivery Room Air 01/22/23 14:00 Temperature 98.2 F Pulse Rate 84 Respiratory Rate 16 Blood Pressure 123/50 L Pulse Oximetry 97 Oxygen Delivery Intake/Output Intake/Output: Intake & Output 01/19/23 01/20/23 01/21/23 01/22/23 23:59 23:59 23:59 23:59 Intake Total 990 700 700 315 Balance 990 700 700 315 Meds/Results Medications:
[2023-01-22 20:00] VITALS: PULSE 78; RESP 16; O2SAT 100
[2023-01-22 22:00] VITALS: BP 126/48; PULSE 78; RESP 16; TEMP 36.2; O2SAT 100
[2023-01-22] MEDS: DONEPEZIL HCL 5 MG TABLET PO (22:08)
[2023-01-23 05:01] VITALS: BP 128/52; PULSE 87; RESP 16; TEMP 36.1; O2SAT 98
[2023-01-23] MEDS: OMEGA 3 POLYUNSAT FATTY ACIDS 1 GM CAP PO (08:37)
[2023-01-23] MEDS: ASPIRIN 81 MG ENTERIC TABLET PO (08:37)
[2023-01-23] MEDS: ENOXAPARIN 40 MG/0.4 ML SYRINGE SUB-Q (08:37)
[2023-01-23] MEDS: SENNA/DOCUSATE SODIUM TABLET 1 TAB PO (08:37)
[2023-01-23] MEDS: SERTRALINE HCL 50 MG TABLET 100 MG PO (08:37)
[2023-01-23] MEDS: ATORVASTATIN 10 MG TABLET PO (08:37)
[2023-01-23] MEDS: CYANOCOBALAMIN 1,000 MCG TABLET 2000 MCG PO (08:37)
[2023-01-23] MEDS: lisinopriL 5 MG TABLET PO (08:37)
[2023-01-23] MEDS: HYDROXYCHLOROQUINE SULFATE 200 MG TABLET PO (08:37)
[2023-01-23] MEDS: CHOLECALCIFEROL 1,000 UNITS TABLET 2000 UNITS PO (08:37)
[2023-01-23 09:01] VITALS: O2SAT 91
[2023-01-23 09:46] LABS: SARS-CoV-2 RNA PCR Negative
[2023-01-23 14:00] VITALS: BP 129/43; PULSE 89; RESP 16; TEMP 36.4; O2SAT 98
--- NOTE | 2023-01-23 15:07 | PM.DS ---
DS: Admitting Diagnosis Discharge Date 01/23/23 Admitting Diagnosis fall, humoral fracture DS: Discharge Diagnosis Discharge Diagnosis (1) Fracture of right shoulder: Code(s): S42.91XA - Fracture of right shoulder girdle, part unspecified, initial encounter for closed fracture Status: Acute Assessment and Plan: Ortho was consulted and patient high risk for surgery. Recommend conservative nonsurgical measures CT of the shoulder shows complex comminuted fractures of right humeral head Continue with analgesics PT OT evaluation and recommendations. right arm immobilizer sling and weight bearing recommendations per ortho (2) Dementia: Code(s): F03.90 - Unspecified dementia, unspecified severity, without behavioral disturbance, psychotic disturbance, mood disturbance, and anxiety Status: Acute Assessment and Plan: Unsure of baseline. Patient is forgetful Continue with [facility] religious education coordinator following for possible rehab B12 222 and will supplement with PO B12 2000 mcg daily, repeat B12 level in [address] head negative for acute findings. Patient with fall during hospitalization on 01/19. Repeat imaging negative and no new complaints or concerning exam findings. Patient moved closer to nurses station. (3) Hypertension: Qualifiers: Hypertension type: primary hypertension Qualified Code(s): I10 - Essential (primary) hypertension Code(s): I10 - Essential (primary) hypertension Status: Chronic Assessment and Plan: Continue with lisinopril as BP allows. 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 started 2000 IU daily for goal >30 Plan CODE STATUS: FULL CODE Disposition: awaiting SNF placement DS: Summary Hospital Course Reason for hospitalization: Fall, right humerus fracture Hospital Course: this is a 87-year-old female with history of dementia that presented to the ED on 01/18/2023 due to a fall landing on her right shoulder. Patient had tripped on something in her bedroom causing her to fall. Patient did not hit her head or lose consciousness during this fall. Right shoulder x-ray read as comminuted fracture of the humeral head with greater tuberosity as a separate fracture fragment. Humerus x-ray read as comminuted fracture of the humeral head the greater tuberosity as a separate fracture fragment. CT head negative for acute findings. Patient was placed in a sling and orthopedics was consulted. CT of the shoulder shows complex comminuted fractures of the right humeral head. Orthopedics did recommend a non operative treatment. Patient worked with PT and OT. Patient did have a fall on 01/19/2023 during her hospitalization. Repeat imaging negative and patient did not have any new complaints at the time. Patient was move closer to the nurse's station. Orthopedics recommend discharge to SNF/ rehab. Patient unable to be discharged to SNF due to patient having positive COVID swab and SNF not having enough staffing for a 1 on 1 COVID accommodation. Patient planned to be discharged back to her living facility. Ort
== END 2023-01-23 17:00 ==
LOC: ANHED 09:12 → ANH3MEDSUR 15:11
PROVIDERS: Internal Medicine Critical Care Medicine; Nurse Practitioner; Nurse Practitioner Family; Admitting Provider Student in an Organized Health Care Education/Training Program; Emergency Provider Emergency Medicine; PCP Internal Medicine; Visit Provider Internal Medicine
DX: S42.291A Other displaced fracture of upper end of right humerus, initial encounter for closed fracture (principal); S42.251A Displaced fracture of greater tuberosity of right humerus, initial encounter for closed fracture; W01.0XXA Fall on same level from slipping, tripping and stumbling without subsequent striking against object, initial encounter; Y92.092 Bedroom in other non-institutional residence as the place of occurrence of the external cause; R29.6 Repeated falls; Z91.81 History of falling; Z99.89 Dependence on other enabling machines and devices; Z20.822 Contact with and (suspected) exposure to COVID-19; F03.90 Unspecified dementia, unspecified severity, without behavioral disturbance, psychotic disturbance, mood disturbance, and anxiety; F41.8 Other specified anxiety disorders; I10 Essential (primary) hypertension; M06.9 Rheumatoid arthritis, unspecified; I67.2 Cerebral atherosclerosis; E78.2 Mixed hyperlipidemia; E55.9 Vitamin D deficiency, unspecified; M51.36 Other intervertebral disc degeneration, lumbar region; Z87.891 Personal history of nicotine dependence; Z79.82 Long term (current) use of aspirin; Z79.899 Other long term (current) drug therapy
CPT/HCPCS: 36415; 70450; 73030; 73060; 73200; 73521; 80048; 80053; 82306; 82607; 82746; 83605; 83735; 84443; 85025; 85027; 87426; 96372; 97110; 97161; 97165; 97530; 97535; 99285; A9270; C9803; G0378; J1650; J2270; U0003; U0005

== ENCOUNTER 2023-01-24 15:48 | Emergency (ER) | payer MEDICARE, SELFPAY ==
[2023-01-24] VITALS (18 sets, daily range): BP systolic 118–132; BP diastolic 50–71; PULSE 83; RESP 16; TEMP 36.6; O2SAT 94–99
--- NOTE | ~2023-01-24 | XR_ITS ---
EXAMINATION: XR shoulder RT min 2V INDICATION: Left shoulder pain, follow-up TECHNIQUE: Three views of the right shoulder are submitted. COMPARISON: 01/18/2023 FINDINGS: Again noted is a comminuted fracture of the proximal humerus. The greater tuberosity is aga in seen to exist as a separate fracture fragment. The humeral head appears caudally displaced with re spect to the glenoid. There is mild osteoarthritis of the acromioclavicular joint. Soft tissues are u nremarkable. IMPRESSION: 1. Comminuted fracture of the humeral head without definite change since the comparison examination. Reviewed, dictated and finalized at location F. IMPRESSION: 1. Comminuted fracture of the humeral head without definite change since the co mparison examination.
--- NOTE | 2023-01-24 15:52 | ED.FALL ---
HPI - Fall General Chief Complaint: Fall Stated Complaint: fall Time Seen by Provider: 01/24/23 15:49 History of Present Illness HPI Narrative: 87-year-old female presents to the emergency room via EMS for right shoulder pain status post mechanical ground-level fall. Patient states that she slipped on a rug in her home, landing on her right shoulder. Patient was discharged from the hospital yesterday, after spending 5 days here due to a comminuted fracture of the right humeral head. Patient is in assisted living and was here for social service consult and possible penitentiary placement. Patient presents in a shoulder immobilizer. Related Data Home Medications Medication Instructions Recorded Confirmed aspirin 81 mg tablet,delayed 81 mg PO DAILY 01/18/23 01/18/23 release atorvastatin 10 mg tablet 10 mg PO DAILY 01/18/23 01/18/23 cholecalciferol (vitamin D3) 50 50 mcg PO DAILY 01/18/23 01/18/23 mcg (2,000 unit) capsule (Vitamin D3) donepezil 5 mg tablet 5 mg PO HS 01/18/23 01/18/23 hydroxychloroquine 200 mg tablet 200 mg PO DAILY 01/18/23 01/18/23 lisinopril 5 mg tablet 5 mg PO DAILY 01/18/23 01/18/23 omega-3 fatty acids-vitamin E 1,000 cap PO DAILY 01/18/23 01/18/23 1,000 mg capsule sertraline 100 mg tablet 100 mg PO DAILY 01/18/23 01/18/23 Allergies Allergy/AdvReac Type Severity Reaction Status Date / Time No Known Allergies Allergy Verified 01/24/23 15:57 Review of Systems Review of Systems: CONSTITUTIONAL: Denies fever, chills, or sweats. EYES: Denies visual changes, redness, or discharge. ENT: Denies rhinorrhea, congestion, sore throat, or otalgia. CARDIOVASCULAR: Denies chest pain, palpitations, or edema. RESPIRATORY: Denies cough or dyspnea. GASTROINTESTINAL: Denies abdominal pain, nausea, vomiting, or diarrhea. GENITOURINARY: Denies dysuria or hematuria. SKIN: Denies rash or itching. MUSCULOSKELETAL: Per HPI right shoulder pain NEUROLOGIC: Denies headache, numbness, dizziness, or weakness. PSYCHIATRIC: Denies anxiety or depression. [facility] Past Medical History Medical History Dementia Depression with anxiety Hyperlipidemia Hypertension Rheumatoid arthritis Surgical History Surgical History H/O foot surgery H/O tubal ligation H/O: hysterectomy Family History Family History Grandparent Family history of malignant neoplasm of breast Sibling Cerebrovascular accident Father Acute myocardial infarction Social History Social History Social History: The patient is and tells me she has 5 children. 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 Code status full code Smoking status: Former smoker Smoking end date: 10/27/69 Alcohol intake: never Substance use: never Substance use type: does not use Lack of Transportation: No Lack of Food: Never True Current Housing: I Have Housing Concerned About Future Housing: No Difficulty Paying Gas/Electric Bills: No Difficulty Paying for Meds: No Currently Unemployed: No Education: High School Diploma/GED Difficulty w/ Childcare or Family Care: No Spiritual care concerns: No Exam Narrative: GENERAL: Well-appearing, well-nourished, no physical limitations, and in no acute distress. HEAD: Normocephalic, atraumatic. EYES: Conjunctivae normal, PERRLA and EOMI. CHEST: Clear to auscultation. No respiratory distress. No wheezes rales or rhonchi. No tenderness. HEART: Regular rate and rhythm. No murmur heard. Normal peripheral pulses. BACK: No cervical/thoracic/lumbar tenderness, step-offs, bony abnormality; FROM EXTREMITIES: right shoulder: Di
== END 2023-01-24 17:55 | disposition home or self-care (01) ==
PROVIDERS: Emergency Provider Nurse Practitioner Family; PCP Internal Medicine
DX: S49.91XA Unspecified injury of right shoulder and upper arm, initial encounter (principal); S42.291D Other displaced fracture of upper end of right humerus, subsequent encounter for fracture with routine healing; F03.90 Unspecified dementia, unspecified severity, without behavioral disturbance, psychotic disturbance, mood disturbance, and anxiety; E78.5 Hyperlipidemia, unspecified; I10 Essential (primary) hypertension; M06.9 Rheumatoid arthritis, unspecified; F41.8 Other specified anxiety disorders; W18.09XA Striking against other object with subsequent fall, initial encounter; W19.XXXD Unspecified fall, subsequent encounter; Z79.82 Long term (current) use of aspirin
CPT/HCPCS: 73030; 99283

== ENCOUNTER 2023-10-31 19:27 | Emergency (ER) | payer MEDICARE, SELFPAY ==
--- NOTE | ~2023-10-31 | XR_ITS ---
EXAMINATION: XR chest 1V portable DATE: 10/31/2023 20:52 INDICATION: Cough. Aspiration. TECHNIQUE: A single frontal view of the chest was obtained. COMPARISON: None. FINDINGS: A calcified left lung nodule is consistent with old granulomatous disease. There is a diffu se interstitial pattern in the lungs. No pleural effusion or pneumothorax. The heart size is normal. There is an old healed fracture of proximal right humerus. IMPRESSION: 1. Diffuse interstitial pattern in the lungs, consistent with mild pulmonary edema versus chronic int erstitial lung disease. Reviewed, dictated and finalized at location E. ICK HAND IMPRESSION: 1. Diffuse interstitial pattern in the lungs, consistent with mild pulmonary ed jenna versus chronic interstitial lung disease.
[2023-10-31 19:32] VITALS: BP 136/67; PULSE 76; RESP 17; TEMP 36.3; O2SAT 94
[2023-10-31 19:41] VITALS: O2SAT 96
--- NOTE | 2023-10-31 20:52 | PC.NURSE ---
Bed alarm applied. Pt reoriented.
--- NOTE | 2023-10-31 20:54 | ED.GENADULT ---
HPI - General Adult General Chief complaint: Unspecified Stated complaint: POSSIBLE ASPIRATION Time Seen by Provider: 10/31/23 19:45 History of Present Illness HPI narrative: 88-year-old female presenting from a halfway with possible aspiration. She was reportedly witnessed to exit her bathroom with a very wet face so they were concerned that she aspirated. No coughing or shortness of breath. Patient is demented, alert and oriented x1 at baseline. She currently denies any complaints. She states that she has no idea why she is here. Related Data Home Medications Medication Instructions Recorded Confirmed aspirin 81 mg tablet,delayed 81 mg PO DAILY 01/18/23 02/25/23 release atorvastatin 10 mg tablet 10 mg PO DAILY 01/18/23 02/25/23 cholecalciferol (vitamin D3) 50 50 mcg PO DAILY 01/18/23 02/25/23 mcg (2,000 unit) capsule (Vitamin D3) donepezil 5 mg tablet 5 mg PO HS 01/18/23 02/25/23 hydroxychloroquine 200 mg tablet 200 mg PO DAILY 01/18/23 02/25/23 lisinopril 5 mg tablet 5 mg PO DAILY 01/18/23 02/25/23 omega-3 fatty acids-vitamin E 1,000 cap PO DAILY 01/18/23 02/25/23 1,000 mg capsule sertraline 100 mg tablet 100 mg PO DAILY 01/18/23 02/25/23 Allergies Allergy/AdvReac Type Severity Reaction Status Date / Time No Known Allergies Allergy Verified 02/20/23 14:27 Review of Systems Review of Systems: ROS unobtainable: Yes unobtainable due to mental status and other (Underlying dementia) [facility] Past Medical History Medical History Dementia Depression with anxiety Hyperlipidemia Hypertension Rheumatoid arthritis Surgical History Surgical History H/O foot surgery H/O tubal ligation H/O: hysterectomy Family History Family History Grandparent Family history of malignant neoplasm of breast Sibling Cerebrovascular accident Father Acute myocardial infarction Social History Social History Social History: The patient is and tells me she has 5 children. 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 Code status full code Smoking status: Former smoker Smoking end date: 10/27/69 Alcohol intake: never Substance use: never Substance use type: does not use Lack of Transportation: No Lack of Food: Never True Current Housing: I Have Housing Concerned About Future Housing: No Difficulty Paying Gas/Electric Bills: No Difficulty Paying for Meds: No Currently Unemployed: No Education: High School Diploma/GED Difficulty w/ Childcare or Family Care: No Spiritual care concerns: No Exam Narrative: GENERAL: Well-appearing, elderly female sitting up in bed in no acute distress HEAD: Normocephalic, atraumatic. EYES: PERRLA and EOMI. ENT: Mucous membranes moist. NECK: Supple. CHEST: Clear to auscultation. No respiratory distress. HEART: Regular rate and rhythm EXTREMITIES: Normal range of motion. No edema. SKIN: Warm, dry, no rash. NEURO: Alert and oriented x1 which is baseline. PSYCH: Normal mood and affect. Course Vital Signs Vital signs: Vital Signs Temperature 97.3 F L 10/31/23 19:32 Pulse Rate 76 10/31/23 19:32 Respiratory Rate 17 10/31/23 19:32 Blood Pressure 136/67 10/31/23 19:32 Pulse Oximetry 94 10/31/23 19:32 Oxygen Delivery Room Air 10/31/23 19:32 Temperature 97.3 F L 10/31/23 19:32 Pulse Rate 76 10/31/23 19:32 Respiratory Rate 17 10/31/23 19:32 Blood Pressure 136/67 10/31/23 19:32 Pulse Oximetry 96 10/31/23 19:41 Oxygen Delivery Room Air 10/31/23 19:41 Medical Decision Making MDM Narrative Medical decision
[2023-10-31 21:55] VITALS: BP 124/67; PULSE 80; RESP 17; O2SAT 98
--- NOTE | 2023-10-31 21:55 | PC.NURSE ---
Report called to [facility].
== END 2023-10-31 23:24 ==
LOC: ANHED 21:09
PROVIDERS: Emergency Provider Emergency Medicine; PCP Internal Medicine
DX: R05.9 Cough, unspecified (principal); F03.90 Unspecified dementia, unspecified severity, without behavioral disturbance, psychotic disturbance, mood disturbance, and anxiety; E78.5 Hyperlipidemia, unspecified; I10 Essential (primary) hypertension; M06.9 Rheumatoid arthritis, unspecified; F41.8 Other specified anxiety disorders; Z90.710 Acquired absence of both cervix and uterus; Z87.891 Personal history of nicotine dependence; R91.8 Other nonspecific abnormal finding of lung field
CPT/HCPCS: 71045; 99283

== ENCOUNTER 2023-12-01 15:01 | Emergency (ER) | payer MEDICARE, SELFPAY ==
--- NOTE | ~2023-12-01 | XR_ITS ---
XR pelvis 1-2V DATE: 12/01/2023 16:04 INDICATION: Fall. TECHNIQUE: AP view COMPARISON: 01/19/2023 AP pelvis and bilateral hips FINDINGS: There is diffuse osteopenia. Alignment remains intact at the pubic symphysis and sacroiliac joints. No pelvic fracture or bone juice truction is detected. Levoscoliosis and degenerative change of the lumbar spine. IMPRESSION: Osteopenia; no pelvic fracture is detected Reviewed, dictated and finalized at location B. IRATORY SCIENTIST
--- NOTE | ~2023-12-01 | CT_ITS ---
EXAMINATION: CT brain wo con DATE: 12/01/2023 16:22 INDICATION: fall . TECHNIQUE: Computed tomography (CT) of the head was performed without intravenous contrast. The mA wa s adjusted according to patient size. Iterative reconstruction technique was employed. The dose-lengt h product was 681.00 mGy-cm. COMPARISON: 01/19/2023. FINDINGS: No acute intracranial hemorrhage or extra-axial fluid collection. No hydrocephalus, mass, or herniation. No acute ischemic infarct. Unremarkable dural venous sinus attenuation. No acute osseous abnormality. Trace left mastoid fluid, the remaining aerated spaces are clear. Moderate atrophy and chronic white matter change. Atherosclerotic intracranial calcification. Bilater al lens replacements. IMPRESSION: No acute intracranial process. Reviewed, dictated and finalized at location K. OR CARE MANAGER
[2023-12-01 15:06] VITALS: BP 131/63; PULSE 71; RESP 16; TEMP 36.4; O2SAT 96
--- NOTE | 2023-12-01 16:57 | ED.FALL ---
HPI - Fall General Chief Complaint: Fall Stated Complaint: glf Time Seen by Provider: 12/01/23 15:07 Source: patient and family Mode of arrival: EMS Limitations: dementia History of Present Illness HPI Narrative: 88-year-old with a history of dementia was brought in from a memory care unit with complaints of fall. Granddaughter who is at bedside states that she keeps falling quite frequently and is scheduled for physical therapy. She is supposed to use walker , keeps forgetting because of her dementia fell this morning . patient has no complaints at this time Related Data Home Medications Medication Instructions Recorded Confirmed aspirin 81 mg tablet,delayed 81 mg PO DAILY 01/18/23 02/25/23 release atorvastatin 10 mg tablet 10 mg PO DAILY 01/18/23 02/25/23 cholecalciferol (vitamin D3) 50 50 mcg PO DAILY 01/18/23 02/25/23 mcg (2,000 unit) capsule (Vitamin D3) donepezil 5 mg tablet 5 mg PO HS 01/18/23 02/25/23 hydroxychloroquine 200 mg tablet 200 mg PO DAILY 01/18/23 02/25/23 lisinopril 5 mg tablet 5 mg PO DAILY 01/18/23 02/25/23 omega-3 fatty acids-vitamin E 1,000 cap PO DAILY 01/18/23 02/25/23 1,000 mg capsule sertraline 100 mg tablet 100 mg PO DAILY 01/18/23 02/25/23 Allergies Allergy/AdvReac Type Severity Reaction Status Date / Time No Known Allergies Allergy Verified 02/20/23 14:27 Review of Systems Review of Systems: All systems reviewed & are unremarkable except as noted in HPI and below Constitutional: Constitutional: Reports no additional constitutional complaints Eyes: Eyes: Reports no additional eye complaints ENT: Reports system reviewed and no additional complaints, except as documented Cardiovascular: Cardiovascular: Reports no additional cardiovascular complaints Respiratory: Respiratory: Reports no additional respiratory complaints Gastrointestinal: Gastrointestinal: Reports no additional gastrointestinal complaints Musculoskeletal: Musculoskeletal: Reports no additional musculoskeletal complaints Integumentary/Breasts: Skin/Breast: Reports system reviewed and no additional complaints, except as docu Neurologic: Reports system reviewed and no additional complaints, except as documented Endocrine: Endocrine: Reports no additional endocrine complaints PMFSH Past Medical History Medical History Dementia Depression with anxiety Hyperlipidemia Hypertension Rheumatoid arthritis Surgical History Surgical History H/O foot surgery H/O tubal ligation H/O: hysterectomy Family History Family History Grandparent Family history of malignant neoplasm of breast Sibling Cerebrovascular accident Father Acute myocardial infarction Social History Social History Social History: The patient is and tells me she has 5 children. 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 Code status full code Smoking status: Former smoker Smoking end date: 10/27/69 Alcohol intake: never Substance use: never Substance use type: does not use Lack of Transportation: No Lack of Food: Never True Current Housing: I Have Housing Concerned About Future Housing: No Difficulty Paying Gas/Electric Bills: No Difficulty Paying for Meds: No Currently Unemployed: No Education: High School Diploma/GED Difficulty w/ Childcare or Family Care: No Spiritual care concerns: No Exam Narrative: GENERAL: Well-appearing, well-nourished, and in no acute distress. HEAD: Normocephalic, atraumatic. EYES: PERRLA and EOMI. NECK: Supple. CHEST: Clear to auscultation. No respiratory distress. HEART: Regular rate and rh
[2023-12-01 17:15] VITALS: BP 141/69; PULSE 68; RESP 14; O2SAT 98
--- NOTE | 2023-12-01 17:16 | PC.NURSE ---
report called to sonny sifuentes [facility]
== END 2023-12-01 17:16 | disposition home or self-care (01) ==
PROVIDERS: Emergency Provider Family Medicine
DX: S09.90XA Unspecified injury of head, initial encounter (principal); F03.90 Unspecified dementia, unspecified severity, without behavioral disturbance, psychotic disturbance, mood disturbance, and anxiety; E78.5 Hyperlipidemia, unspecified; I10 Essential (primary) hypertension; M06.9 Rheumatoid arthritis, unspecified; F41.8 Other specified anxiety disorders; Z87.891 Personal history of nicotine dependence; Z79.82 Long term (current) use of aspirin; Z90.710 Acquired absence of both cervix and uterus; M85.88 Other specified disorders of bone density and structure, other site; W19.XXXA Unspecified fall, initial encounter
CPT/HCPCS: 70450; 72170; 99284

== ENCOUNTER 2023-12-18 17:22 | Emergency (ER) | payer MEDICARE, SELFPAY ==
--- NOTE | ~2023-12-18 | CT_ITS ---
EXAMINATION: CT brain wo con DATE: 12/18/2023 17:37 INDICATION: Head injury. TECHNIQUE: Computed tomography (CT) of the head was performed without intravenous contrast. The mA wa s adjusted according to patient size. Iterative reconstruction technique was employed. The dose-lengt h product was 605.33 mGy-cm. COMPARISON: Head CT 12/01/2023 FINDINGS: There are scattered areas of low attenuation in the cerebral white matter. There is no intr acranial hemorrhage, acute infarction, or abnormal intracranial mass lesion. The ventricles are destiny l in size. There are likely changes of ocular lens replacement surgeries. The paranasal sinuses are c lear. There is a trace left mastoid effusion. There is a right posterior scalp hematoma. IMPRESSION: 1. Stable moderate nonspecific cerebral white matter disease, which likely represents chronic small v essel ischemic disease. Reviewed, dictated and finalized at location E. E [employer] AND DRIVER IMPRESSION: 1. Stable moderate nonspecific cerebral white matter disease, which likely repr esents chronic small vessel ischemic disease.
--- NOTE | ~2023-12-18 | CT_ITS ---
EXAMINATION: CT cervical spine wo con DATE: 12/18/2023 17:38 INDICATION: Head injury. TECHNIQUE: Computed tomography (CT) of the cervical spine was performed without intravenous contrast. Automated exposure control and iterative reconstruction technique were employed. The dose-length pro duct was 123.82 mGy-cm. COMPARISON: None FINDINGS: There is a 14 mm nodule in right thyroid lobe, likely not clinically significant. There is 2 mm anterolisthesis of C4 on C5. There is 7 degrees dextrocurvature of cervical spine. There are chr onic compression fractures of T2 and T4 with 1/5 loss of height. There is moderately decreased disc h eight at C3-C4, mildly decreased disc height at C4-C5, and severely decreased disc height at C5-C6 an d C6-C7. The following disc levels are specifically discussed: C2-C3: There is mild left uncovertebral joint osteoarthritis. There is mild right and severe left fac et joint osteoarthritis. There is mild left neural foraminal stenosis. There is no central canal sten osis. C3-C4: There is moderate bilateral uncovertebral joint osteoarthritis. There is moderate right and se danilo left facet joint osteoarthritis. There is mild left neural foraminal stenosis. There is no centr al canal stenosis. C4-C5: There is mild bilateral uncovertebral joint osteoarthritis. There is severe bilateral facet luisana int osteoarthritis. There is mild left neural foraminal stenosis. There is no central canal stenosis. C5-C6: There is severe bilateral uncovertebral joint osteoarthritis. There is moderate bilateral face t joint osteoarthritis. There is moderate bilateral neural foraminal stenosis. There is mild central canal stenosis. C6-C7: There is severe bilateral uncovertebral joint osteoarthritis. There is moderate right and hermes re left facet joint osteoarthritis. There is mild bilateral neural foraminal stenosis. There is mild central canal stenosis. C7-T1: There is no uncovertebral joint osteoarthritis. There is severe bilateral facet joint osteoart hritis. There is no neural foraminal stenosis. There is no central canal stenosis. IMPRESSION: 1. No fracture. 2. Severe cervical spondylosis. Reviewed, dictated and finalized at location E. OLOGIST
[2023-12-18 17:22] VITALS: BP 183/84; PULSE 65; RESP 18; TEMP 36.7; O2SAT 98
[2023-12-18] MEDS: ONDANSETRON HCL ODT 4 MG TABLET PO (17:42)
--- NOTE | 2023-12-18 17:43 | ED.FALL ---
HPI - Fall General Chief Complaint: Fall Stated Complaint: RUSHING s/p fall Time Seen by Provider: 12/18/23 17:25 Source: patient and EMS Mode of arrival: EMS Limitations: no limitations History of Present Illness HPI Narrative: Patient is an 88-year-old female, with past medical history of dementia - A&OX2 at baseline, who presents the ED via EMS with report of a fall. Patient is resident of [facility]. Per longterm report, patient had a witnessed fall today walking to dinner. She was using her walker, but lost her balance and fell backwards hitting her head on the ground. She does have a hematoma to her posterior scalp. Patient complains of a mild headache and mild nausea currently. Denies neck pain. Denies dizziness, lightheadedness. Denies vision changes. She does remember the entire fall. Denies LOC. Patient takes aspirin 81 mg daily. No other injuries. She does have bruising noted to her right-sided face, which she reports is old from a previous fall. Related Data Home Medications Medication Instructions Recorded Confirmed aspirin 81 mg tablet,delayed 81 mg PO DAILY 01/18/23 02/25/23 release atorvastatin 10 mg tablet 10 mg PO DAILY 01/18/23 02/25/23 cholecalciferol (vitamin D3) 50 50 mcg PO DAILY 01/18/23 02/25/23 mcg (2,000 unit) capsule (Vitamin D3) donepezil 5 mg tablet 5 mg PO HS 01/18/23 02/25/23 hydroxychloroquine 200 mg tablet 200 mg PO DAILY 01/18/23 02/25/23 lisinopril 5 mg tablet 5 mg PO DAILY 01/18/23 02/25/23 omega-3 fatty acids-vitamin E 1,000 cap PO DAILY 01/18/23 02/25/23 1,000 mg capsule sertraline 100 mg tablet 100 mg PO DAILY 01/18/23 02/25/23 Allergies Allergy/AdvReac Type Severity Reaction Status Date / Time No Known Allergies Allergy Verified 02/20/23 14:27 Review of Systems Review of Systems: CONSTITUTIONAL: Denies fever, chills, or sweats. ENT: Denies vision changes CARDIOVASCULAR: Denies chest pain. RESPIRATORY: Denies dyspnea. GASTROINTESTINAL: See HPI MUSCULOSKELETAL: Denies back pain, neck pain. NEUROLOGIC: See HPI All systems reviewed & are unremarkable except as noted in HPI and below PMFSH Past Medical History Medical History Dementia Depression with anxiety Hyperlipidemia Hypertension Rheumatoid arthritis Surgical History Surgical History H/O foot surgery H/O tubal ligation H/O: hysterectomy Family History Family History Grandparent Family history of malignant neoplasm of breast Sibling Cerebrovascular accident Father Acute myocardial infarction Social History Social History Social History: The patient is and tells me she has 5 children. 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 She tells me that she lives in academic support assistant living. Code status full code Smoking status: Former smoker Smoking end date: 10/27/69 Alcohol intake: never Substance use: never Substance use type: does not use Lack of Transportation: No Lack of Food: Never True Current Housing: I Have Housing Concerned About Future Housing: No Difficulty Paying Gas/Electric Bills: No Difficulty Paying for Meds: No Currently Unemployed: No Education: High School Diploma/GED Difficulty w/ Childcare or Family Care: No Spiritual care concerns: No Exam Narrative: GENERAL: Elderly, frail, thin, non-toxic, in no acute distress. HEAD: Normocephalic. Large contusion to right posterior scalp, focal tenderness, no wounds or bleeding. EYES: PERRL/EOMI, conjunctiva clear. Old ecchymosis to R face/periorbital region. NECK: Neck supple. No midline spinal tenderness. RESPIRATORY: Airway patent, respiration
[2023-12-18] MEDS: ACETAMINOPHEN 325 MG TABLET 650 MG PO (17:57)
== END 2023-12-18 18:10 ==
PROVIDERS: Emergency Provider Physician Assistant
DX: S00.03XA Contusion of scalp, initial encounter (principal); F03.90 Unspecified dementia, unspecified severity, without behavioral disturbance, psychotic disturbance, mood disturbance, and anxiety; I10 Essential (primary) hypertension; E78.5 Hyperlipidemia, unspecified; M06.9 Rheumatoid arthritis, unspecified; F41.8 Other specified anxiety disorders; Z90.710 Acquired absence of both cervix and uterus; R90.82 White matter disease, unspecified; M47.812 Spondylosis without myelopathy or radiculopathy, cervical region; W18.39XA Other fall on same level, initial encounter
CPT/HCPCS: 70450; 72125; 99284; A9270

== ENCOUNTER 2024-03-07 19:51 | Emergency (ER) | payer MEDICARE, SELFPAY ==
[2024-03-07 19:46] VITALS: BP 126/53; PULSE 77; RESP 20; TEMP 36.4; O2SAT 98
[2024-03-07 19:57] VITALS: BP 126/53; PULSE 75; RESP 23; O2SAT 97
--- NOTE | 2024-03-07 19:57 | ECG_ITS ---
SEE SCANNED COPY FOR CONFIRMED REPORT MTDD
[2024-03-07 20:01] VITALS: BP 133/44; PULSE 74; RESP 23; O2SAT 97
--- NOTE | 2024-03-07 20:16 | ED.GENADULT ---
HPI - General Adult General Chief complaint: Syncope Stated complaint: syncope x 2 Time Seen by Provider: 03/07/24 20:04 History of Present Illness HPI narrative: This is a 70 year female presenting for possible syncope. Patient has severe dementia. she does not remember the events leading up to her ER visit. She is currently asymptomatic and has no complaints. A&O x1 his baseline. The patient's son and power of energy attorney (Alfonso Nicole) is @ bedside. He was with her throughout most of the day. He says that she was in a rocking chair when she nodded off fell asleep. With staff touched her she immediately woke up. She cannot recall what happened although that is normal for her. The son does not want a workup performed as she is comfort measures only and has no complaints at this time. Related Data Home Medications Medication Instructions Recorded Confirmed aspirin 81 mg tablet,delayed 81 mg PO DAILY 01/18/23 02/25/23 release atorvastatin 10 mg tablet 10 mg PO DAILY 01/18/23 02/25/23 cholecalciferol (vitamin D3) 50 50 mcg PO DAILY 01/18/23 02/25/23 mcg (2,000 unit) capsule (Vitamin D3) donepezil 5 mg tablet 5 mg PO HS 01/18/23 02/25/23 hydroxychloroquine 200 mg tablet 200 mg PO DAILY 01/18/23 02/25/23 lisinopril 5 mg tablet 5 mg PO DAILY 01/18/23 02/25/23 omega-3 fatty acids-vitamin E 1,000 cap PO DAILY 01/18/23 02/25/23 1,000 mg capsule sertraline 100 mg tablet 100 mg PO DAILY 01/18/23 02/25/23 Allergies Allergy/AdvReac Type Severity Reaction Status Date / Time No Known Allergies Allergy Verified 02/20/23 14:27 COUNT INCLUDES THE [facility] Past Medical History Medical History Dementia Depression with anxiety Hyperlipidemia Hypertension Rheumatoid arthritis Surgical History Surgical History H/O foot surgery H/O tubal ligation H/O: hysterectomy Family History Family History Grandparent Family history of malignant neoplasm of breast Sibling Cerebrovascular accident Father Acute myocardial infarction Social History Social History Social History: The patient is and tells me she has 5 children. 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 She tells me that she lives in licensed physical therapy assistant living. Code status full code Smoking status: Former smoker Smoking end date: 10/27/69 Alcohol intake: never Substance use: never Substance use type: does not use Lack of Transportation: No Lack of Food: Never True Current Housing: I Have Housing Concerned About Future Housing: No Difficulty Paying Gas/Electric Bills: No Difficulty Paying for Meds: No Currently Unemployed: No Education: High School Diploma/GED Difficulty w/ Childcare or Family Care: No Spiritual care concerns: No Exam Narrative: APPEARANCE: No apparent distress. Head: atraumatic. EYES: EOMI, NOSE: Atraumatic NECK: Trachea midline RESPIRATORY: No increased rate of breathing, CTAB CARDIOVASCULAR: RRR, ABDOMINAL: Non-distended MUSCULOSKELETAl: No obvious deformities NEURO: Alert. Moving 4/4 extremities SKIN:: Warm, dry. Normal color PSYCHIATRIC: Normal affect Course Vital Signs Vital signs: Vital Signs Temperature 97.6 F 03/07/24 19:46 Pulse Rate 77 03/07/24 19:46 Respiratory Rate 20 03/07/24 19:46 Blood Pressure 126/53 L 03/07/24 19:46 Pulse Oximetry 98 03/07/24 19:46 Oxygen Delivery Room Air 03/07/24 19:46 Temperature 97.6 F 03/07/24 19:46 Pulse Rate 77 03/07/24 19:46 Respiratory Rate 20 03/07/24 19:46 Blood Pressure 126/53 L 03/07/24 19:46 Pulse Oximetry 98 03/07/24 19:46 Oxygen Delivery Room Air 03/07/24 19:46 Medical Decision Making M
[2024-03-07 21:15] VITALS: BP 131/65; PULSE 71; RESP 15; TEMP 36.6; O2SAT 100
== END 2024-03-07 21:32 | disposition home or self-care (01) ==
PROVIDERS: Emergency Provider Emergency Medicine
DX: R55 Syncope and collapse (principal); I10 Essential (primary) hypertension; E78.5 Hyperlipidemia, unspecified; M06.9 Rheumatoid arthritis, unspecified; F41.8 Other specified anxiety disorders; Z90.710 Acquired absence of both cervix and uterus; Z87.891 Personal history of nicotine dependence; Z79.82 Long term (current) use of aspirin
CPT/HCPCS: 93005; 99284

== ENCOUNTER 2024-04-08 15:09 | Emergency (ER) | payer MEDICARE, SELFPAY ==
--- NOTE | ~2024-04-08 | CT_ITS ---
CT brain wo con Ordering provider: Romeo Young MD History: 88 years Female with . fall . Comparison: January 19, 2023 Technique: CT of the head without contrast. Radiation reduction technique utilized. FINDINGS: BRAIN PARENCHYMA AND CSF SPACES: Deep white matter ischemic changes with mild brain atrophy and with ventricular dilatation. No midline shift, mass effect or hemorrhage. The brain parenchyma and CSF sp aces are otherwise normal. VISUALIZED PARANASAL SINUSES: Well aerated. MASTOIDS: Well aerated. BONES: The bones appear intact. SOFT TISSUES: Visualized nasopharynx is normal. Small scalp hematoma in the right occipital area. Ot herwise, Superficial soft tissues are normal. IMPRESSION: No acute intracranial findings. Reviewed, dictated and finalized at location A.
--- NOTE | ~2024-04-08 | XR_ITS ---
XR hip BI 2V w AP pelvis 04/08/2024 16:18 Indication: Hip pain after fall Procedure: AP pelvis and 2 views each hip Comparison: 12/01/2023 Findings: There is osteoarthritis of the hips. Pelvic rings are intact. There is lower lumbar spondyl osis. Osteopenia. No acute fracture or traumatic malalignment. Impression: 1: No acute fracture. Reviewed, dictated and finalized at location B. Impression: 1: No acute fracture.
[2024-04-08 15:10] VITALS: BP 146/60; PULSE 67; RESP 18; TEMP 36.6; O2SAT 97
--- NOTE | 2024-04-08 17:01 | ED.FALL ---
HPI - Fall General Chief Complaint: Fall Stated Complaint: fall Time Seen by Provider: 04/08/24 15:27 Source: EMS Mode of arrival: EMS Limitations: no limitations History of Present Illness HPI Narrative: 88-year-old with a history of dementia was brought in from [facility] with complaints of right hip pain. Patient fell 2 days ago. She denies any head and neck injuries. Patient presently has no complaints MD complaint: fall Onset (ago): day(s) (2) Fall from: other (Unknown) Fall witnessed: no Place fall occurred: [facility] Loss of consciousness: none Location of injury: pelvis Related Data Home Medications Medication Instructions Recorded Confirmed aspirin 81 mg tablet,delayed 81 mg PO DAILY 01/18/23 02/25/23 release atorvastatin 10 mg tablet 10 mg PO DAILY 01/18/23 02/25/23 cholecalciferol (vitamin D3) 50 50 mcg PO DAILY 01/18/23 02/25/23 mcg (2,000 unit) capsule (Vitamin D3) donepezil 5 mg tablet 5 mg PO HS 01/18/23 02/25/23 hydroxychloroquine 200 mg tablet 200 mg PO DAILY 01/18/23 02/25/23 lisinopril 5 mg tablet 5 mg PO DAILY 01/18/23 02/25/23 omega-3 fatty acids-vitamin E 1,000 cap PO DAILY 01/18/23 02/25/23 1,000 mg capsule sertraline 100 mg tablet 100 mg PO DAILY 01/18/23 02/25/23 Allergies Allergy/AdvReac Type Severity Reaction Status Date / Time No Known Allergies Allergy Verified 02/20/23 14:27 Review of Systems Review of Systems: All systems reviewed & are unremarkable except as noted in HPI and below Constitutional: Constitutional: Reports no additional constitutional complaints Eyes: Eyes: Reports no additional eye complaints ENT: Reports system reviewed and no additional complaints, except as documented Cardiovascular: Cardiovascular: Reports no additional cardiovascular complaints Respiratory: Respiratory: Reports no additional respiratory complaints Gastrointestinal: Gastrointestinal: Reports no additional gastrointestinal complaints Musculoskeletal: Musculoskeletal: Reports as per HPI [facility] Past Medical History Medical History Dementia Depression with anxiety Hyperlipidemia Hypertension Rheumatoid arthritis Surgical History Surgical History H/O foot surgery H/O tubal ligation H/O: hysterectomy Family History Family History Grandparent Family history of malignant neoplasm of breast Sibling Cerebrovascular accident Father Acute myocardial infarction Social History Social History Social History: The patient is and tells me she has 5 children. 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 She tells me that she lives in dermatology physician assistant living. Code status full code Smoking status: Former smoker Smoking end date: 10/27/69 Alcohol intake: never Substance use: never Substance use type: does not use Lack of Transportation: No Lack of Food: Never True Current Housing: I Have Housing Concerned About Future Housing: No Difficulty Paying Gas/Electric Bills: No Difficulty Paying for Meds: No Currently Unemployed: No Education: High School Diploma/GED Difficulty w/ Childcare or Family Care: No Spiritual care concerns: No Exam Narrative: GENERAL: Well-appearing, thin and frail, and in no acute distress. HEAD: Normocephalic, atraumatic. EYES: PERRLA and EOMI. ENT: Nares clear, no rhinorrhea or epistaxis. Mucous membranes moist. NECK: Supple. CHEST: Clear to auscultation. No respiratory distress. HEART: Regular rate and rhythm. No murmur heard. Normal peripheral pulses. ABDOMEN: Soft, nontender, nondistended, normal active bowel sounds. EXTREMITIES: Normal range of motion. No edema. SKIN: Warm, dry, no ra
[2024-04-08 17:33] VITALS: BP 136/64; PULSE 72; RESP 18; O2SAT 97
== END 2024-04-08 17:35 | disposition home or self-care (01) ==
PROVIDERS: Emergency Provider Family Medicine
DX: S70.01XA Contusion of right hip, initial encounter (principal); W19.XXXA Unspecified fall, initial encounter; F03.90 Unspecified dementia, unspecified severity, without behavioral disturbance, psychotic disturbance, mood disturbance, and anxiety; I10 Essential (primary) hypertension; E78.5 Hyperlipidemia, unspecified; F41.8 Other specified anxiety disorders; Z87.891 Personal history of nicotine dependence
CPT/HCPCS: 70450; 73521; 99284